=== PATIENT | male | born 1945 | race Caucasian/White ===

== ENCOUNTER 2018-02-21 13:12 | Outpatient (CLI) | payer MEDICARE, BC, SELFPAY ==
[2018-02-21 14:13] LABS: Bilirubin Negative (Negative); Blood Negative (Negative); Clarity Clear; Glucose Negative (Negative); Ketones Negative (Negative); Leukocyte Esterase Negative (Negative); Nitrite Negative (Negative); Specific Gravity 1.015 (1.005-1.025)
== END 2018-02-21 13:32 ==
PROVIDERS: Visit Provider Internal Medicine Hematology & Oncology
DX: N39.0 Urinary tract infection, site not specified (principal)
CPT/HCPCS: 81003

== ENCOUNTER 2018-02-26 08:57 | Outpatient (CLI) | payer MEDICARE, BC, SELFPAY ==
[2018-02-26 09:17] LABS: Abs Immature Grans 0.03 k/cumm (0.0-0.09); Absolute Basophil Count 0.01 k/cumm (0.0-0.2); Absolute Eosinophil Count 0.13 k/cumm (0.0-0.7); Absolute Lymphocyte Count 0.83 k/cumm (1.2-3.4); Absolute Monocyte Count 0.62 k/cumm (0.11-0.7); Absolute Neutrophil Count 2.61 k/cumm (1.2-6.7); Basophils % 0.2; Eosinophils % 3.1; HCT 35.6 % (40.0-50.0); HGB 12.1 g/dL (13.5-17.5); Immature Grans % 0.7; Lymphocytes % 19.6; Mean Corpuscular Hemoglobin 34.4 pg (27.0-33.0); Mean Corpuscular Volume 101.1 fL (80-95); Mean Platelet Volume 10.3 fL (8.0-11.0); Monocytes % 14.7; Neutrophils % 61.7; Platelet Count 134 x1000/uL (130-400); RBC 3.52 m/cumm (4.50-6.00); RBC Distribution Width 13.7 % (11.8-14.1); White Blood Cell Count 4.23 k/cumm (4.4-10.8)
[2018-02-26 09:28] LABS: ALT 43 U/L (12-78); AST 24 U/L (15-37); Albumin 3.2 g/dL (3.4-5.0); Alkaline Phosphatase 40 U/L (46-116); Anion Gap 7.8 mmol/L (3-11); BUN 12 mg/dL (7-18); Bilirubin, Total 0.7 mg/dL (0.2-1.0); CO2 26.2 mmol/L (21.0-32.0); CREATININE 1.03 mg/dL (0.70-1.30); Calcium 8.8 mg/dL (8.5-10.1); Chloride 103 mmol/L (98-107); Glucose 101 mg/dL (70-100); Potassium 3.9 mmol/L (3.5-5.1); Sodium 137 mmol/L (136-145); Total Protein 7.4 g/dL (6.4-8.2)
[2018-02-27 09:58] LABS: IgA 1060 mg/dL (85-499); IgG 450 mg/dL (610-1616); IgM 27 mg/dL (35-242); Kappa Free Light Chain 1.02 mg/dl (0.33-1.94)
[2018-02-27 12:56] LABS: Albumin 49.4 % (55.8-66.1); Monoclonal Spike 12.1 %; Total Protein 6.8 g/dl (6.3-8.2)
== END 2018-02-26 09:17 ==
PROVIDERS: Visit Provider Internal Medicine Hematology & Oncology
DX: D47.2 Monoclonal gammopathy (principal)
CPT/HCPCS: 36415; 80053; 82784; 83883; 84165; 85025

== ENCOUNTER 2018-03-07 10:04 | Outpatient (CLI) | payer MEDICARE, BC, SELFPAY ==
[2018-03-07 10:22] LABS: Abs Immature Grans 0.02 k/cumm (0.0-0.09); Absolute Eosinophil Count 0.03 k/cumm (0.0-0.7); Absolute Lymphocyte Count 0.91 k/cumm (1.2-3.4); Absolute Monocyte Count 1.13 k/cumm (0.11-0.7); Absolute Neutrophil Count 5.14 k/cumm (1.2-6.7); Eosinophils % 0.4; HCT 34.4 % (40.0-50.0); HGB 11.6 g/dL (13.5-17.5); Immature Grans % 0.3; Lymphocytes % 12.6; Mean Corp. HGB Concentration 33.7 g/dL (32.0-36.0); Mean Corpuscular Hemoglobin 34.4 pg (27.0-33.0); Mean Corpuscular Volume 102.1 fL (80-95); Monocytes % 15.6; Neutrophils % 71.1; Platelet Count 227 x1000/uL (130-400); RBC 3.37 m/cumm (4.50-6.00); RBC Distribution Width 13.9 % (11.8-14.1); White Blood Cell Count 7.23 k/cumm (4.4-10.8)
[2018-03-07 10:33] LABS: ALT 37 U/L (12-78); AST 16 U/L (15-37); Albumin 3.3 g/dL (3.4-5.0); Alkaline Phosphatase 38 U/L (46-116); Anion Gap 12.2 mmol/L (3-11); BUN 12 mg/dL (7-18); Bilirubin, Total 0.3 mg/dL (0.2-1.0); CO2 23.8 mmol/L (21.0-32.0); CREATININE 1.04 mg/dL (0.70-1.30); Calcium 8.4 mg/dL (8.5-10.1); Chloride 107 mmol/L (98-107); Glucose 101 mg/dL (70-100); Potassium 4.3 mmol/L (3.5-5.1); Sodium 143 mmol/L (136-145); Total Protein 6.8 g/dL (6.4-8.2)
== END 2018-03-07 10:24 ==
PROVIDERS: PCP Registered Nurse; Visit Provider Internal Medicine Hematology & Oncology
DX: C90.00 Multiple myeloma not having achieved remission (principal)
CPT/HCPCS: 36415; 80053; 85025

== ENCOUNTER 2018-03-19 08:05 | Outpatient (CLI) | payer MEDICARE, BC, SELFPAY ==
[2018-03-19 08:53] LABS: Abs Immature Grans 0.04 k/cumm (0.0-0.09); Absolute Basophil Count 0.02 k/cumm (0.0-0.2); Absolute Eosinophil Count 0.16 k/cumm (0.0-0.7); Absolute Lymphocyte Count 0.76 k/cumm (1.2-3.4); Absolute Monocyte Count 0.46 k/cumm (0.11-0.7); Absolute Neutrophil Count 4.14 k/cumm (1.2-6.7); Basophils % 0.4; Eosinophils % 2.9; HGB 11.6 g/dL (13.5-17.5); Immature Grans % 0.7; Lymphocytes % 13.6; Mean Corp. HGB Concentration 34.1 g/dL (32.0-36.0); Mean Corpuscular Hemoglobin 34.3 pg (27.0-33.0); Mean Corpuscular Volume 100.6 fL (80-95); Mean Platelet Volume 10.1 fL (8.0-11.0); Monocytes % 8.2; Neutrophils % 74.2; Platelet Count 203 x1000/uL (130-400); RBC 3.38 m/cumm (4.50-6.00); RBC Distribution Width 13.5 % (11.8-14.1); White Blood Cell Count 5.58 k/cumm (4.4-10.8)
[2018-03-19 09:28] LABS: ALT 23 U/L (12-78); AST 12 U/L (15-37); Albumin 3.2 g/dL (3.4-5.0); Alkaline Phosphatase 52 U/L (46-116); Anion Gap 11.4 mmol/L (3-11); BUN 10 mg/dL (7-18); Bilirubin, Total 0.5 mg/dL (0.2-1.0); CO2 25.6 mmol/L (21.0-32.0); CREATININE 1.02 mg/dL (0.70-1.30); Calcium 8.6 mg/dL (8.5-10.1); Chloride 102 mmol/L (98-107); Glucose 99 mg/dL (70-100); Potassium 4.1 mmol/L (3.5-5.1); Sodium 139 mmol/L (136-145)
[2018-03-20 11:45] LABS: Kappa Free Light Chain 0.89 mg/dl (0.33-1.94); Lambda Free Light Chain 14.64 mg/dl (0.57-2.63)
[2018-03-20 13:24] LABS: Albumin 53.6 % (55.8-66.1); Monoclonal Spike 4.7 %; Total Protein 6.2 g/dl (6.3-8.2)
[2018-03-21 03:21] LABS: Beta-2-Microglobulin 2.56 mcg/mL
== END 2018-03-19 08:25 ==
PROVIDERS: Student in an Organized Health Care Education/Training Program; PCP Registered Nurse; Visit Provider Internal Medicine Hematology & Oncology
DX: C90.00 Multiple myeloma not having achieved remission (principal)
CPT/HCPCS: 36415; 80053; 82232; 83883; 84165; 85025

== ENCOUNTER 2018-04-12 11:46 | Outpatient (CLI) | payer MEDICARE, BC, SELFPAY ==
[2018-04-12 12:44] LABS: Abs Immature Grans 0.29 k/cumm (0.0-0.09); HCT 35.5 % (40.0-50.0); HGB 11.9 g/dL (13.5-17.5); Mean Corp. HGB Concentration 33.5 g/dL (32.0-36.0); Mean Corpuscular Hemoglobin 33.1 pg (27.0-33.0); Mean Corpuscular Volume 98.6 fL (80-95); Mean Platelet Volume 10.6 fL (8.0-11.0); Platelet Count 159 x1000/uL (130-400); White Blood Cell Count 6.32 k/cumm (4.4-10.8)
[2018-04-12 12:57] LABS: ALT 32 U/L (12-78); AST 23 U/L (15-37); Albumin 3.5 g/dL (3.4-5.0); Alkaline Phosphatase 54 U/L (46-116); Anion Gap 11.5 mmol/L (3-11); BUN 15 mg/dL (7-18); Bilirubin, Total 0.4 mg/dL (0.2-1.0); CO2 25.5 mmol/L (21.0-32.0); CREATININE 0.86 mg/dL (0.70-1.30); Chloride 103 mmol/L (98-107); Glucose 98 mg/dL (70-100); Potassium 4.4 mmol/L (3.5-5.1); Sodium 140 mmol/L (136-145)
[2018-04-12 13:16] LABS: Absolute Basophil Count 0.06 k/cumm (0.0-0.2); Absolute Lymphocyte Count 1.26 k/cumm (1.2-3.4); Absolute Neutrophil Count 3.98 k/cumm (1.2-6.7)
[2018-04-12 13:17] LABS: Diff Comment Manual Differential; Polychromasia Present
[2018-04-13 10:17] LABS: Kappa Free Light Chain 0.88 mg/dl (0.33-1.94); Lambda Free Light Chain 12.93 mg/dl (0.57-2.63)
[2018-04-13 13:53] LABS: Albumin 56.9 % (55.8-66.1); Monoclonal Spike 3.2 %; Total Protein 6.3 g/dl (6.3-8.2)
[2018-04-13 19:39] LABS: Beta-2-Microglobulin 4.25 mcg/mL
== END 2018-04-12 12:06 ==
PROVIDERS: PCP Registered Nurse; Visit Provider Student in an Organized Health Care Education/Training Program
DX: C90.00 Multiple myeloma not having achieved remission (principal)
CPT/HCPCS: 36415; 80053; 82232; 83883; 84165; 85025

== ENCOUNTER 2018-05-16 11:23 | Outpatient (CLI) | payer MEDICARE, SELFPAY ==
[2018-05-16 12:14] LABS: Abs Immature Grans 0.02 k/cumm (0.0-0.09); Absolute Basophil Count 0.01 k/cumm (0.0-0.2); Absolute Eosinophil Count 0.08 k/cumm (0.0-0.7); Absolute Lymphocyte Count 1.08 k/cumm (1.2-3.4); Absolute Monocyte Count 0.17 k/cumm (0.11-0.7); Absolute Neutrophil Count 4.58 k/cumm (1.2-6.7); Basophils % 0.2; Eosinophils % 1.3; HCT 36.6 % (40.0-50.0); HGB 12.3 g/dL (13.5-17.5); Immature Grans % 0.3; Lymphocytes % 18.2; Mean Corp. HGB Concentration 33.6 g/dL (32.0-36.0); Mean Corpuscular Hemoglobin 32.5 pg (27.0-33.0); Mean Corpuscular Volume 96.8 fL (80-95); Mean Platelet Volume 9.4 fL (8.0-11.0); Monocytes % 2.9; Neutrophils % 77.1; Platelet Count 250 x1000/uL (130-400); RBC 3.78 m/cumm (4.50-6.00); RBC Distribution Width 14.7 % (11.8-14.1); White Blood Cell Count 5.94 k/cumm (4.4-10.8)
[2018-05-16 12:23] LABS: ALT 55 U/L (12-78); AST 21 U/L (15-37); Albumin 3.9 g/dL (3.4-5.0); Alkaline Phosphatase 55 U/L (46-116); Anion Gap 11.2 mmol/L (3-11); BUN 16 mg/dL (7-18); Bilirubin, Total 0.5 mg/dL (0.2-1.0); CO2 22.8 mmol/L (21.0-32.0); Calcium 9.3 mg/dL (8.5-10.1); Chloride 103 mmol/L (98-107); Glucose 131 mg/dL (70-100); Potassium 4.5 mmol/L (3.5-5.1); Sodium 137 mmol/L (136-145); Total Protein 7.2 g/dL (6.4-8.2)
[2018-05-17 11:54] LABS: Albumin 58.1 % (55.8-66.1); Monoclonal Spike 3.2 %; Total Protein 6.7 g/dl (6.3-8.2)
[2018-05-17 13:30] LABS: IgA 168 mg/dL (85-499); IgG 554 mg/dL (610-1616); IgM 26 mg/dL (35-242); Kappa Free Light Chain 0.84 mg/dl (0.33-1.94); Lambda Free Light Chain 8.05 mg/dl (0.57-2.63)
== END 2018-05-16 11:43 ==
PROVIDERS: PCP Registered Nurse; Visit Provider Internal Medicine Hematology & Oncology
DX: C90.00 Multiple myeloma not having achieved remission (principal); D47.2 Monoclonal gammopathy
CPT/HCPCS: 36415; 80053; 82784; 83883; 84165; 85025

== ENCOUNTER 2018-05-23 12:41 | Outpatient (CLI) | payer MEDICARE, SELFPAY ==
[2018-05-23 13:13] LABS: Abs Immature Grans 0.03 k/cumm (0.0-0.09); Absolute Basophil Count 0.03 k/cumm (0.0-0.2); Absolute Eosinophil Count 0.28 k/cumm (0.0-0.7); Absolute Lymphocyte Count 2.38 k/cumm (1.2-3.4); Absolute Monocyte Count 0.72 k/cumm (0.11-0.7); Absolute Neutrophil Count 3.89 k/cumm (1.2-6.7); Basophils % 0.4; Eosinophils % 3.8; HGB 12.5 g/dL (13.5-17.5); Immature Grans % 0.4; Lymphocytes % 32.5; Mean Corp. HGB Concentration 33.8 g/dL (32.0-36.0); Mean Corpuscular Hemoglobin 32.9 pg (27.0-33.0); Mean Corpuscular Volume 97.4 fL (80-95); Mean Platelet Volume 9.1 fL (8.0-11.0); Monocytes % 9.8; Neutrophils % 53.1; Platelet Count 278 x1000/uL (130-400); RBC Distribution Width 15.2 % (11.8-14.1); White Blood Cell Count 7.33 k/cumm (4.4-10.8)
== END 2018-05-23 13:01 ==
PROVIDERS: PCP Registered Nurse; Visit Provider Internal Medicine Hematology & Oncology
DX: D47.2 Monoclonal gammopathy (principal)
CPT/HCPCS: 36415; 85025

== ENCOUNTER 2018-06-08 11:11 | Outpatient (CLI) | payer MEDICARE, SELFPAY ==
[2018-06-08 11:30] LABS: Abs Immature Grans 0.03 k/cumm (0.0-0.09); Absolute Basophil Count 0.01 k/cumm (0.0-0.2); Absolute Eosinophil Count 0.17 k/cumm (0.0-0.7); Absolute Lymphocyte Count 1.67 k/cumm (1.2-3.4); Absolute Monocyte Count 1.59 k/cumm (0.11-0.7); Absolute Neutrophil Count 5.68 k/cumm (1.2-6.7); Basophils % 0.1; Eosinophils % 1.9; HCT 36.3 % (40.0-50.0); HGB 12.3 g/dL (13.5-17.5); Immature Grans % 0.3; Lymphocytes % 18.3; Mean Corp. HGB Concentration 33.9 g/dL (32.0-36.0); Mean Corpuscular Hemoglobin 32.8 pg (27.0-33.0); Mean Corpuscular Volume 96.8 fL (80-95); Mean Platelet Volume 9.4 fL (8.0-11.0); Monocytes % 17.4; Platelet Count 182 x1000/uL (130-400); RBC 3.75 m/cumm (4.50-6.00); White Blood Cell Count 9.15 k/cumm (4.4-10.8)
[2018-06-08 11:42] LABS: ALT 26 U/L (12-78); AST 10 U/L (15-37); Albumin 3.6 g/dL (3.4-5.0); Alkaline Phosphatase 46 U/L (46-116); Anion Gap 8.9 mmol/L (3-11); BUN 17 mg/dL (7-18); Bilirubin, Total 0.4 mg/dL (0.2-1.0); CO2 27.1 mmol/L (21.0-32.0); CREATININE 0.89 mg/dL (0.70-1.30); Calcium 8.4 mg/dL (8.5-10.1); Chloride 104 mmol/L (98-107); Glucose 116 mg/dL (70-100); LDH 111 U/L (85-227); Potassium 3.6 mmol/L (3.5-5.1); Sodium 140 mmol/L (136-145); Total Protein 6.7 g/dL (6.4-8.2)
[2018-06-08 11:51] LABS: Diff Comment Manual Differential; Polychromasia Present
[2018-06-11 10:49] LABS: IgA 139 mg/dL (85-499); IgG 490 mg/dL (610-1616); IgM 20 mg/dL (35-242); Kappa Free Light Chain 0.87 mg/dl (0.33-1.94); Lambda Free Light Chain 10.59 mg/dl (0.57-2.63)
[2018-06-11 14:32] LABS: Albumin 60.8 % (55.8-66.1); Monoclonal Spike 2.3 %; Total Protein 6.1 g/dl (6.3-8.2)
== END 2018-06-08 11:31 ==
PROVIDERS: PCP Registered Nurse; Visit Provider Internal Medicine Hematology & Oncology
DX: D47.2 Monoclonal gammopathy (principal)
CPT/HCPCS: 36415; 80053; 82784; 83615; 83883; 84165; 85025

== ENCOUNTER 2018-06-29 12:07 | Outpatient (CLI) | payer MEDICARE, BC, SELFPAY ==
[2018-06-29 12:56] LABS: Abs Immature Grans 0.05 k/cumm (0.0-0.09); Absolute Basophil Count 0.01 k/cumm (0.0-0.2); Absolute Eosinophil Count 0.08 k/cumm (0.0-0.7); Absolute Lymphocyte Count 1.63 k/cumm (1.2-3.4); Absolute Neutrophil Count 4.43 k/cumm (1.2-6.7); Basophils % 0.1; Eosinophils % 1.1; HCT 36.4 % (40.0-50.0); HGB 12.2 g/dL (13.5-17.5); Immature Grans % 0.7; Lymphocytes % 21.4; Mean Corp. HGB Concentration 33.5 g/dL (32.0-36.0); Mean Corpuscular Hemoglobin 32.2 pg (27.0-33.0); Mean Platelet Volume 9.9 fL (8.0-11.0); Monocytes % 18.4; Neutrophils % 58.3; Platelet Count 258 x1000/uL (130-400); RBC 3.79 m/cumm (4.50-6.00); RBC Distribution Width 15.6 % (11.8-14.1)
[2018-06-29 13:25] LABS: ALT 29 U/L (12-78); AST 11 U/L (15-37); Albumin 3.6 g/dL (3.4-5.0); Alkaline Phosphatase 34 U/L (46-116); Anion Gap 10.5 mmol/L (3-11); BUN 14 mg/dL (7-18); Bilirubin, Total 0.3 mg/dL (0.2-1.0); CO2 25.5 mmol/L (21.0-32.0); Calcium 8.6 mg/dL (8.5-10.1); Chloride 104 mmol/L (98-107); Glucose 103 mg/dL (70-100); Potassium 3.9 mmol/L (3.5-5.1); Sodium 140 mmol/L (136-145); Total Protein 6.3 g/dL (6.4-8.2)
[2018-07-02 10:31] LABS: IgA 136 mg/dL (85-499); IgG 482 mg/dL (610-1616); IgM 17 mg/dL (35-242); Kappa Free Light Chain 0.78 mg/dl (0.33-1.94); Lambda Free Light Chain 8.45 mg/dl (0.57-2.63)
[2018-07-02 11:50] LABS: Albumin 61.8 % (55.8-66.1); Monoclonal Spike 2.9 %
== END 2018-06-29 12:27 ==
PROVIDERS: PCP Registered Nurse; Visit Provider Student in an Organized Health Care Education/Training Program
DX: C90.00 Multiple myeloma not having achieved remission (principal); D47.2 Monoclonal gammopathy
CPT/HCPCS: 36415; 80053; 82784; 83883; 84165; 85025

== ENCOUNTER 2018-07-20 11:11 | Outpatient (CLI) | payer MEDICARE, BC, SELFPAY ==
[2018-07-20 11:37] LABS: Abs Immature Grans 0.03 k/cumm (0.0-0.09); Absolute Basophil Count 0.01 k/cumm (0.0-0.2); Absolute Eosinophil Count 0.11 k/cumm (0.0-0.7); Absolute Lymphocyte Count 1.78 k/cumm (1.2-3.4); Absolute Monocyte Count 1.64 k/cumm (0.11-0.7); Absolute Neutrophil Count 5.92 k/cumm (1.2-6.7); Basophils % 0.1; Eosinophils % 1.2; HCT 36.8 % (40.0-50.0); HGB 12.5 g/dL (13.5-17.5); Immature Grans % 0.3; Lymphocytes % 18.8; Mean Corpuscular Hemoglobin 32.5 pg (27.0-33.0); Mean Corpuscular Volume 95.6 fL (80-95); Mean Platelet Volume 9.2 fL (8.0-11.0); Monocytes % 17.3; Neutrophils % 62.3; Platelet Count 278 x1000/uL (130-400); RBC 3.85 m/cumm (4.50-6.00); RBC Distribution Width 15.1 % (11.8-14.1); White Blood Cell Count 9.49 k/cumm (4.4-10.8)
[2018-07-20 11:50] LABS: ALT 23 U/L (12-78); AST 10 U/L (15-37); Albumin 3.6 g/dL (3.4-5.0); Alkaline Phosphatase 37 U/L (46-116); Anion Gap 9.1 mmol/L (3-11); BUN 19 mg/dL (7-18); Bilirubin, Total 0.3 mg/dL (0.2-1.0); CO2 24.9 mmol/L (21.0-32.0); CREATININE 0.94 mg/dL (0.70-1.30); Calcium 8.9 mg/dL (8.5-10.1); Chloride 103 mmol/L (98-107); Glucose 97 mg/dL (70-100); Potassium 4.1 mmol/L (3.5-5.1); Sodium 137 mmol/L (136-145); Total Protein 6.6 g/dL (6.4-8.2)
[2018-07-20 11:52] LABS: Anisocytosis 1+; Diff Comment Manual Differential
[2018-07-23 11:36] LABS: IgA 125 mg/dL (85-499); IgG 452 mg/dL (610-1616); IgM 18 mg/dL (35-242); Kappa Free Light Chain 0.84 mg/dl (0.33-1.94); Lambda Free Light Chain 8.08 mg/dl (0.57-2.63)
[2018-07-23 12:33] LABS: Albumin 60.8 % (55.8-66.1); Monoclonal Spike 2.5 %; Total Protein 6.1 g/dl (6.3-8.2)
== END 2018-07-20 11:31 ==
PROVIDERS: PCP Registered Nurse; Visit Provider Internal Medicine Hematology & Oncology
DX: D47.2 Monoclonal gammopathy (principal)
CPT/HCPCS: 36415; 80053; 82784; 83883; 84165; 85025

== ENCOUNTER 2018-08-17 11:16 | Outpatient (CLI) | payer MEDICARE, BC, SELFPAY ==
[2018-08-17 11:36] LABS: Abs Immature Grans 0.01 k/cumm (0.0-0.09); Absolute Basophil Count 0.03 k/cumm (0.0-0.2); Absolute Eosinophil Count 0.45 k/cumm (0.0-0.7); Absolute Lymphocyte Count 1.48 k/cumm (1.2-3.4); Absolute Monocyte Count 0.92 k/cumm (0.11-0.7); Absolute Neutrophil Count 1.73 k/cumm (1.2-6.7); Basophils % 0.6; Eosinophils % 9.7; HCT 38.6 % (40.0-50.0); HGB 13.3 g/dL (13.5-17.5); Immature Grans % 0.2; Mean Corp. HGB Concentration 34.5 g/dL (32.0-36.0); Mean Corpuscular Hemoglobin 32.8 pg (27.0-33.0); Mean Corpuscular Volume 95.1 fL (80-95); Mean Platelet Volume 9.4 fL (8.0-11.0); Monocytes % 19.9; Neutrophils % 37.6; Platelet Count 251 x1000/uL (130-400); RBC 4.06 m/cumm (4.50-6.00); RBC Distribution Width 14.9 % (11.8-14.1); White Blood Cell Count 4.62 k/cumm (4.4-10.8)
[2018-08-17 12:25] LABS: ALT 23 U/L (12-78); AST 10 U/L (15-37); Albumin 3.9 g/dL (3.4-5.0); Alkaline Phosphatase 47 U/L (46-116); Anion Gap 8.9 mmol/L (3-11); BUN 11 mg/dL (7-18); Bilirubin, Total 0.5 mg/dL (0.2-1.0); CO2 26.1 mmol/L (21.0-32.0); CREATININE 0.99 mg/dL (0.70-1.30); Calcium 9.1 mg/dL (8.5-10.1); Chloride 106 mmol/L (98-107); Glucose 96 mg/dL (70-100); Potassium 4.4 mmol/L (3.5-5.1); Sodium 141 mmol/L (136-145); Total Protein 6.7 g/dL (6.4-8.2)
[2018-08-20 11:03] LABS: Kappa Free Light Chain 1.28 mg/dl (0.33-1.94); Lambda Free Light Chain 10.81 mg/dl (0.57-2.63)
[2018-08-20 12:22] LABS: Albumin 61.2 % (55.8-66.1); Monoclonal Spike 3.4 %; Total Protein 6.5 g/dl (6.3-8.2)
== END 2018-08-17 11:36 ==
PROVIDERS: PCP Registered Nurse; Visit Provider Internal Medicine Hematology & Oncology
DX: D47.2 Monoclonal gammopathy (principal)
CPT/HCPCS: 36415; 80053; 83883; 84165; 85025

== ENCOUNTER 2018-09-28 10:32 | Outpatient (CLI) | payer MEDICARE, BC, SELFPAY ==
[2018-09-28 10:55] LABS: Abs Immature Grans 0.01 k/cumm (0.0-0.09); Absolute Basophil Count 0.02 k/cumm (0.0-0.2); Absolute Eosinophil Count 0.44 k/cumm (0.0-0.7); Absolute Lymphocyte Count 1.76 k/cumm (1.2-3.4); Absolute Monocyte Count 0.55 k/cumm (0.11-0.7); Absolute Neutrophil Count 1.87 k/cumm (1.2-6.7); Basophils % 0.4; Eosinophils % 9.5; HCT 37.9 % (40.0-50.0); HGB 12.9 g/dL (13.5-17.5); Immature Grans % 0.2; Lymphocytes % 37.8; Mean Corpuscular Hemoglobin 32.9 pg (27.0-33.0); Mean Corpuscular Volume 96.7 fL (80-95); Monocytes % 11.8; Neutrophils % 40.3; Platelet Count 226 x1000/uL (130-400); RBC 3.92 m/cumm (4.50-6.00); RBC Distribution Width 15.5 % (11.8-14.1); White Blood Cell Count 4.65 k/cumm (4.4-10.8)
[2018-09-28 11:14] LABS: ALT 34 U/L (12-78); AST 22 U/L (15-37); Albumin 3.8 g/dL (3.4-5.0); Alkaline Phosphatase 35 U/L (46-116); Anion Gap 10.6 mmol/L (3-11); BUN 14 mg/dL (7-18); Bilirubin, Total 0.7 mg/dL (0.2-1.0); CO2 26.4 mmol/L (21.0-32.0); CREATININE 0.73 mg/dL (0.70-1.30); Calcium 8.9 mg/dL (8.5-10.1); Chloride 106 mmol/L (98-107); Glucose 108 mg/dL (70-100); Sodium 143 mmol/L (136-145); Total Protein 6.9 g/dL (6.4-8.2)
[2018-10-01 09:15] LABS: Kappa Free Light Chain 0.92 mg/dl (0.33-1.94)
[2018-10-01 10:11] LABS: IgA 248 mg/dL (85-499); IgG 567 mg/dL (610-1616); IgM 22 mg/dL (35-242)
[2018-10-01 12:17] LABS: Albumin 60.5 % (55.8-66.1); Monoclonal Spike 4.1 %; Total Protein 6.6 g/dl (6.3-8.2)
== END 2018-09-28 10:52 ==
PROVIDERS: PCP Registered Nurse; Visit Provider Internal Medicine Hematology & Oncology
DX: C90.00 Multiple myeloma not having achieved remission (principal)
CPT/HCPCS: 36415; 80053; 82784; 83883; 84165; 85025

== ENCOUNTER 2018-11-02 11:42 | Outpatient (CLI) | payer MEDICARE, BC, SELFPAY ==
[2018-11-02 13:07] LABS: Abs Immature Grans 0.03 k/cumm (0.0-0.09); Absolute Basophil Count 0.02 k/cumm (0.0-0.2); Absolute Eosinophil Count 0.35 k/cumm (0.0-0.7); Absolute Lymphocyte Count 1.59 k/cumm (1.2-3.4); Absolute Monocyte Count 0.71 k/cumm (0.11-0.7); Absolute Neutrophil Count 2.32 k/cumm (1.2-6.7); Basophils % 0.4; HCT 42.3 % (40.0-50.0); HGB 14.4 g/dL (13.5-17.5); Immature Grans % 0.6; Lymphocytes % 31.7; Mean Corpuscular Hemoglobin 33.4 pg (27.0-33.0); Mean Corpuscular Volume 98.1 fL (80-95); Mean Platelet Volume 9.7 fL (8.0-11.0); Monocytes % 14.1; Neutrophils % 46.2; Platelet Count 240 x1000/uL (130-400); RBC 4.31 m/cumm (4.50-6.00); RBC Distribution Width 14.9 % (11.8-14.1); White Blood Cell Count 5.02 k/cumm (4.4-10.8)
[2018-11-02 13:24] LABS: ALT 53 U/L (16-63); AST 30 U/L (15-37); Albumin 4.2 g/dL (3.4-5.0); Alkaline Phosphatase 39 U/L (46-116); Anion Gap 10.5 mmol/L (3-11); BUN 13 mg/dL (7-18); Bilirubin, Total 0.4 mg/dL (0.2-1.0); CO2 25.5 mmol/L (21.0-32.0); CREATININE 0.91 mg/dL (0.70-1.30); Calcium 8.9 mg/dL (8.5-10.1); Chloride 104 mmol/L (98-107); Glucose 97 mg/dL (70-100); Potassium 4.5 mmol/L (3.5-5.1); Sodium 140 mmol/L (136-145); Total Protein 7.2 g/dL (6.4-8.2)
[2018-11-05 11:43] LABS: IgA 323 mg/dL (85-499); IgG 601 mg/dL (610-1616); IgM 28 mg/dL (35-242); Kappa Free Light Chain 1.08 mg/dl (0.33-1.94); Lambda Free Light Chain 15.17 mg/dl (0.57-2.63)
[2018-11-05 13:54] LABS: Albumin 61.6 % (55.8-66.1); Monoclonal Spike 5.2 %; Total Protein 7.1 g/dl (6.3-8.2)
== END 2018-11-02 12:02 ==
PROVIDERS: PCP Registered Nurse; Visit Provider Internal Medicine Hematology & Oncology
DX: D47.2 Monoclonal gammopathy (principal)
CPT/HCPCS: 36415; 80053; 82784; 83883; 84165; 85025

== ENCOUNTER 2018-11-30 11:25 | Outpatient (CLI) | payer MEDICARE, BC, SELFPAY ==
[2018-11-30 12:06] LABS: Abs Immature Grans 0.02 k/cumm (0.0-0.09); Absolute Basophil Count 0.01 k/cumm (0.0-0.2); Absolute Lymphocyte Count 1.57 k/cumm (1.2-3.4); Absolute Neutrophil Count 1.64 k/cumm (1.2-6.7); Basophils % 0.2; HCT 40.8 % (40.0-50.0); HGB 14.2 g/dL (13.5-17.5); Immature Grans % 0.5; Lymphocytes % 38.9; Mean Corp. HGB Concentration 34.8 g/dL (32.0-36.0); Mean Corpuscular Volume 97.6 fL (80-95); Monocytes % 14.9; Neutrophils % 40.5; Platelet Count 239 x1000/uL (130-400); RBC 4.18 m/cumm (4.50-6.00); RBC Distribution Width 14.3 % (11.8-14.1); White Blood Cell Count 4.04 k/cumm (4.4-10.8)
[2018-11-30 12:39] LABS: ALT 40 U/L (16-63); AST 28 U/L (15-37); Albumin 3.9 g/dL (3.4-5.0); Alkaline Phosphatase 38 U/L (46-116); Anion Gap 10.2 mmol/L (3-11); BUN 11 mg/dL (7-18); Bilirubin, Total 0.4 mg/dL (0.2-1.0); CO2 25.8 mmol/L (21.0-32.0); CREATININE 0.93 mg/dL (0.70-1.30); Calcium 8.8 mg/dL (8.5-10.1); Chloride 104 mmol/L (98-107); Glucose 102 mg/dL (70-100); Potassium 4.2 mmol/L (3.5-5.1); Sodium 140 mmol/L (136-145); Total Protein 7.2 g/dL (6.4-8.2)
[2018-12-03 11:38] LABS: Kappa Free Light Chain 1.48 mg/dl (0.33-1.94); Lambda Free Light Chain 20.19 mg/dl (0.57-2.63)
[2018-12-03 11:59] LABS: IgA 348 mg/dL (85-499); IgG 623 mg/dL (610-1616); IgM 30 mg/dL (35-242)
[2018-12-03 13:19] LABS: Albumin 60.3 % (55.8-66.1); Monoclonal Spike 5.4 %; Total Protein 6.8 g/dl (6.3-8.2)
== END 2018-11-30 11:45 ==
PROVIDERS: PCP Registered Nurse; Visit Provider Internal Medicine Hematology & Oncology
DX: D47.2 Monoclonal gammopathy (principal)
CPT/HCPCS: 36415; 80053; 82784; 83883; 84165; 85025

== ENCOUNTER 2018-12-28 12:14 | Outpatient (CLI) | payer MEDICARE, BC, SELFPAY ==
[2018-12-28 12:56] LABS: Abs Immature Grans 0.01 k/cumm (0.0-0.09); Absolute Basophil Count 0.03 k/cumm (0.0-0.2); Absolute Lymphocyte Count 1.72 k/cumm (1.2-3.4); Absolute Monocyte Count 0.76 k/cumm (0.11-0.7); Absolute Neutrophil Count 1.19 k/cumm (1.2-6.7); Basophils % 0.8; Eosinophils % 5.1; HCT 40.1 % (40.0-50.0); Immature Grans % 0.3; Mean Corp. HGB Concentration 34.9 g/dL (32.0-36.0); Mean Corpuscular Hemoglobin 34.2 pg (27.0-33.0); Mean Platelet Volume 8.7 fL (8.0-11.0); Monocytes % 19.4; Neutrophils % 30.4; Platelet Count 212 x1000/uL (130-400); RBC 4.09 m/cumm (4.50-6.00); RBC Distribution Width 13.8 % (11.8-14.1); White Blood Cell Count 3.91 k/cumm (4.4-10.8)
[2018-12-28 13:08] LABS: ALT 51 U/L (16-63); AST 24 U/L (15-37); Albumin 3.9 g/dL (3.4-5.0); Alkaline Phosphatase 38 U/L (46-116); BUN 10 mg/dL (7-18); Bilirubin, Total 0.4 mg/dL (0.2-1.0); CREATININE 0.99 mg/dL (0.70-1.30); Calcium 8.9 mg/dL (8.5-10.1); Chloride 105 mmol/L (98-107); Glucose 101 mg/dL (70-100); Potassium 4.1 mmol/L (3.5-5.1); Sodium 141 mmol/L (136-145); Total Protein 7.2 g/dL (6.4-8.2)
[2019-01-01 11:42] LABS: IgA 390 mg/dL (85-499); IgG 678 mg/dL (610-1,616); IgM 29 mg/dL (35-242); Kappa Free Light Chain 1.52 mg/dL (0.33-1.94); Lambda Free Light Chain 23.96 mg/dL (0.57-2.63)
[2019-01-07 17:40] LABS: Albumin 61.7 % (55.8-66.1); Monoclonal Spike 5.3 % (<=0.0)
== END 2018-12-28 12:34 ==
PROVIDERS: PCP Registered Nurse; Visit Provider Internal Medicine Hematology & Oncology
DX: C90.00 Multiple myeloma not having achieved remission (principal)
CPT/HCPCS: 36415; 80053; 82784; 83883; 84165; 85025

== ENCOUNTER 2019-01-25 11:39 | Outpatient (CLI) | payer MEDICARE, BC, SELFPAY ==
[2019-01-25 12:36] LABS: Abs Immature Grans 0.01 k/cumm (0.0-0.09); Absolute Basophil Count 0.01 k/cumm (0.0-0.2); Absolute Eosinophil Count 0.19 k/cumm (0.0-0.7); Absolute Lymphocyte Count 1.23 k/cumm (1.2-3.4); Absolute Neutrophil Count 2.18 k/cumm (1.2-6.7); Basophils % 0.2; Eosinophils % 4.6; HCT 40.4 % (40.0-50.0); HGB 13.9 g/dL (13.5-17.5); Immature Grans % 0.2; Lymphocytes % 29.9; Mean Corp. HGB Concentration 34.4 g/dL (32.0-36.0); Mean Corpuscular Hemoglobin 34.3 pg (27.0-33.0); Mean Corpuscular Volume 99.8 fL (80-95); Monocytes % 12.1; Platelet Count 204 x1000/uL (130-400); RBC 4.05 m/cumm (4.50-6.00); RBC Distribution Width 13.5 % (11.8-14.1); White Blood Cell Count 4.12 k/cumm (4.4-10.8)
[2019-01-25 13:55] LABS: ALT 54 U/L (16-63); AST 33 U/L (15-37); Albumin 4.2 g/dL (3.4-5.0); Alkaline Phosphatase 40 U/L (46-116); Anion Gap 10.5 mmol/L (3-11); BUN 16 mg/dL (7-18); Bilirubin, Total 0.6 mg/dL (0.2-1.0); CO2 24.5 mmol/L (21.0-32.0); CREATININE 1.02 mg/dL (0.70-1.30); Calcium 9.3 mg/dL (8.5-10.1); Chloride 104 mmol/L (98-107); Glucose 98 mg/dL (74-106); Potassium 4.2 mmol/L (3.5-5.1); Sodium 139 mmol/L (136-145); Total Protein 7.5 g/dL (6.4-8.2)
[2019-01-28 11:32] LABS: IgA 434 mg/dL (85-499); IgG 680 mg/dL (610-1,616); IgM 25 mg/dL (35-242); Kappa Free Light Chain 1.44 mg/dL (0.33-1.94); Lambda Free Light Chain 28.61 mg/dL (0.57-2.63)
[2019-01-28 15:52] LABS: Albumin 58.9 % (55.8-66.1); Comment (See Note); Monoclonal Spike 7.3 % (None Seen); Total Protein 7.7 g/dL (6.3-8.2)
== END 2019-01-25 11:59 ==
PROVIDERS: PCP Registered Nurse; Visit Provider Internal Medicine Hematology & Oncology
DX: C90.00 Multiple myeloma not having achieved remission (principal)
CPT/HCPCS: 36415; 80053; 82784; 83883; 84165; 85025

== ENCOUNTER 2019-02-22 11:26 | Outpatient (CLI) | payer MEDICARE, BC, SELFPAY ==
[2019-02-22 11:55] LABS: Abs Immature Grans 0.01 k/cumm (0.0-0.09); Absolute Basophil Count 0.01 k/cumm (0.0-0.2); Absolute Eosinophil Count 0.11 k/cumm (0.0-0.7); Absolute Lymphocyte Count 1.52 k/cumm (1.2-3.4); Absolute Monocyte Count 0.74 k/cumm (0.11-0.7); Absolute Neutrophil Count 1.01 k/cumm (1.2-6.7); Basophils % 0.3; Eosinophils % 3.2; HCT 37.3 % (40.0-50.0); Immature Grans % 0.3 %; Lymphocytes % 44.7; Mean Corp. HGB Concentration 34.9 g/dL (32.0-36.0); Mean Corpuscular Hemoglobin 35.1 pg (27.0-33.0); Mean Corpuscular Volume 100.8 fL (80-95); Mean Platelet Volume 8.5 fL (8.0-11.0); Monocytes % 21.8; Neutrophils % 29.7; Platelet Count 227 x1000/uL (130-400)
[2019-02-22 12:06] LABS: ALT 53 U/L (16-63); AST 34 U/L (15-37); Albumin 3.6 g/dL (3.4-5.0); Alkaline Phosphatase 36 U/L (46-116); Anion Gap 9.7 mmol/L (3-11); BUN 8 mg/dL (7-18); Bilirubin, Total 0.4 mg/dL (0.2-1.0); CO2 26.3 mmol/L (21.0-32.0); CREATININE 0.98 mg/dL (0.70-1.30); Calcium 9.1 mg/dL (8.5-10.1); Chloride 105 mmol/L (98-107); Glucose 103 mg/dL (74-106); Potassium 3.9 mmol/L (3.5-5.1); Sodium 141 mmol/L (136-145); Total Protein 7.2 g/dL (6.4-8.2)
[2019-02-25 13:09] LABS: Albumin 58.5 % (55.8-66.1); Comment (See Note); Monoclonal Spike 6.5 % (None Seen); Total Protein 6.5 g/dL (6.3-8.2)
[2019-02-25 13:51] LABS: IgA 418 mg/dL (85-499); IgG 656 mg/dL (610-1,616); IgM 23 mg/dL (35-242); Kappa Free Light Chain 1.45 mg/dL (0.33-1.94)
== END 2019-02-22 11:46 ==
PROVIDERS: PCP Registered Nurse; Visit Provider Internal Medicine Hematology & Oncology
DX: C90.00 Multiple myeloma not having achieved remission (principal)
CPT/HCPCS: 36415; 80053; 82784; 83883; 84165; 85025

== ENCOUNTER 2019-03-22 12:29 | Outpatient (CLI) | payer MEDICARE, BC, SELFPAY ==
[2019-03-22 13:05] LABS: Abs Immature Grans 0.01 k/cumm (0.0-0.09); Absolute Basophil Count 0.02 k/cumm (0.0-0.2); Absolute Eosinophil Count 0.07 k/cumm (0.0-0.7); Absolute Lymphocyte Count 1.39 k/cumm (1.2-3.4); Absolute Monocyte Count 0.46 k/cumm (0.11-0.7); Absolute Neutrophil Count 0.53 k/cumm (1.2-6.7); Basophils % 0.8; Eosinophils % 2.8; HCT 38.1 % (40.0-50.0); HGB 13.2 g/dL (13.5-17.5); Immature Grans % 0.4 %; Mean Corp. HGB Concentration 34.6 g/dL (32.0-36.0); Mean Corpuscular Hemoglobin 35.3 pg (27.0-33.0); Mean Corpuscular Volume 101.9 fL (80-95); Mean Platelet Volume 9.1 fL (8.0-11.0); Monocytes % 18.5; Neutrophils % 21.5; Platelet Count 171 x1000/uL (130-400); RBC 3.74 m/cumm (4.50-6.00); RBC Distribution Width 14.5 % (11.8-14.1); White Blood Cell Count 2.48 k/cumm (4.4-10.8)
[2019-03-22 13:07] LABS: ALT 45 U/L (16-63); AST 27 U/L (15-37); Albumin 3.7 g/dL (3.4-5.0); Alkaline Phosphatase 45 U/L (46-116); Anion Gap 8.9 mmol/L (3-11); BUN 12 mg/dL (7-18); Bilirubin, Total 0.3 mg/dL (0.2-1.0); CO2 25.1 mmol/L (21.0-32.0); Calcium 8.7 mg/dL (8.5-10.1); Chloride 106 mmol/L (98-107); Glucose 105 mg/dL (74-106); Potassium 3.9 mmol/L (3.5-5.1); Sodium 140 mmol/L (136-145); Total Protein 7.2 g/dL (6.4-8.2)
[2019-03-22 13:22] LABS: Diff Comment Agrees w/ Instrument; RBC Morphology Normal
[2019-03-25 13:08] LABS: IgA 529 mg/dL (85-499); IgG 694 mg/dL (610-1,616); IgM 26 mg/dL (35-242); Kappa Free Light Chain 1.67 mg/dL (0.33-1.94); Lambda Free Light Chain 30.63 mg/dL (0.57-2.63)
[2019-03-25 14:20] LABS: Albumin 57.1 % (55.8-66.1); Comment (See Note); Monoclonal Spike 8.4 % (None Seen); Total Protein 6.8 g/dL (6.3-8.2)
== END 2019-03-22 12:49 ==
PROVIDERS: PCP Registered Nurse; Visit Provider Internal Medicine Hematology & Oncology
DX: C90.00 Multiple myeloma not having achieved remission (principal)
CPT/HCPCS: 36415; 80053; 82784; 83883; 84165; 85025

== ENCOUNTER 2019-04-19 11:43 | Outpatient (CLI) | payer MEDICARE, BC, SELFPAY ==
[2019-04-19 12:09] LABS: Absolute Basophil Count 0.01 k/cumm (0.0-0.2); Absolute Eosinophil Count 0.12 k/cumm (0.0-0.7); Absolute Lymphocyte Count 1.03 k/cumm (1.2-3.4); Absolute Neutrophil Count 0.77 k/cumm (1.2-6.7); Basophils % 0.4; Eosinophils % 4.9; HCT 37.5 % (40.0-50.0); Lymphocytes % 42.4; Mean Corp. HGB Concentration 34.7 g/dL (32.0-36.0); Mean Corpuscular Hemoglobin 34.8 pg (27.0-33.0); Mean Corpuscular Volume 100.3 fL (80-95); Monocytes % 20.6; Neutrophils % 31.7; Platelet Count 173 x1000/uL (130-400); RBC 3.74 m/cumm (4.50-6.00); RBC Distribution Width 13.7 % (11.8-14.1); White Blood Cell Count 2.43 k/cumm (4.4-10.8)
[2019-04-19 12:47] LABS: ALT 45 U/L (16-63); AST 27 U/L (15-37); Albumin 3.7 g/dL (3.4-5.0); Alkaline Phosphatase 36 U/L (46-116); BUN 16 mg/dL (7-18); Bilirubin, Total 0.4 mg/dL (0.2-1.0); CREATININE 1.08 mg/dL (0.70-1.30); Calcium 8.6 mg/dL (8.5-10.1); Chloride 105 mmol/L (98-107); Glucose 107 mg/dL (74-106); Potassium 4.2 mmol/L (3.5-5.1); Sodium 139 mmol/L (136-145); Total Protein 7.1 g/dL (6.4-8.2)
[2019-04-22 12:13] LABS: Albumin 57.5 % (55.8-66.1); Comment (See Note); Monoclonal Spike 7.5 % (None Seen); Total Protein 6.7 g/dL (6.3-8.2)
[2019-04-22 12:22] LABS: IgA 543 mg/dL (85-499); IgG 734 mg/dL (610-1,616); IgM 27 mg/dL (35-242); Kappa Free Light Chain 1.89 mg/dL (0.33-1.94); Lambda Free Light Chain 35.36 mg/dL (0.57-2.63)
== END 2019-04-19 12:03 ==
PROVIDERS: PCP Registered Nurse; Visit Provider Internal Medicine Hematology & Oncology
DX: C90.00 Multiple myeloma not having achieved remission (principal)
CPT/HCPCS: 36415; 80053; 82784; 83883; 84165; 85025

== ENCOUNTER 2019-05-17 11:57 | Outpatient (CLI) | payer MEDICARE, BC, SELFPAY ==
[2019-05-17 12:26] LABS: Abs Immature Grans 0.01 k/cumm (0.0-0.09); Absolute Eosinophil Count 0.16 k/cumm (0.0-0.7); Absolute Lymphocyte Count 1.27 k/cumm (1.2-3.4); Absolute Monocyte Count 0.51 k/cumm (0.11-0.7); Absolute Neutrophil Count 0.74 k/cumm (1.2-6.7); Eosinophils % 5.9; HCT 36.4 % (40.0-50.0); HGB 12.8 g/dL (13.5-17.5); Immature Grans % 0.4 %; Lymphocytes % 47.2; Mean Corp. HGB Concentration 35.2 g/dL (32.0-36.0); Mean Corpuscular Hemoglobin 35.8 pg (27.0-33.0); Mean Corpuscular Volume 101.7 fL (80-95); Mean Platelet Volume 8.6 fL (8.0-11.0); Neutrophils % 27.5; Platelet Count 175 x1000/uL (130-400); RBC 3.58 m/cumm (4.50-6.00); RBC Distribution Width 14.5 % (11.8-14.1); White Blood Cell Count 2.69 k/cumm (4.4-10.8)
[2019-05-17 12:45] LABS: ALT 46 U/L (16-63); AST 24 U/L (15-37); Albumin 3.9 g/dL (3.4-5.0); Alkaline Phosphatase 39 U/L (46-116); BUN 18 mg/dL (7-18); Bilirubin, Total 0.5 mg/dL (0.2-1.0); CREATININE 1.16 mg/dL (0.70-1.30); Calcium 9.1 mg/dL (8.5-10.1); Chloride 105 mmol/L (98-107); Glucose 107 mg/dL (74-106); Potassium 3.6 mmol/L (3.5-5.1); Sodium 142 mmol/L (136-145); Total Protein 7.5 g/dL (6.4-8.2)
[2019-05-20 10:01] LABS: IgA 702 mg/dL (85-499); IgG 674 mg/dL (610-1,616); IgM 24 mg/dL (35-242); Lambda Free Light Chain 37.06 mg/dL (0.57-2.63)
[2019-05-20 13:06] LABS: Albumin 56.4 % (55.8-66.1); Comment (See Note); Monoclonal Spike 10.4 % (None Seen); Total Protein 6.9 g/dL (6.3-8.2)
== END 2019-05-17 12:17 ==
PROVIDERS: PCP Registered Nurse; Visit Provider Internal Medicine Hematology & Oncology
DX: C90.00 Multiple myeloma not having achieved remission (principal)
CPT/HCPCS: 36415; 80053; 82784; 83883; 84165; 85025

== ENCOUNTER 2019-06-05 09:45 | Outpatient (RCR) | payer MEDICARE, BC, SELFPAY ==
[2019-06-05 11:12] LABS: Abs Immature Grans 0.01 k/cumm (0.0-0.09); Absolute Basophil Count 0.02 k/cumm (0.0-0.2); Absolute Eosinophil Count 0.14 k/cumm (0.0-0.7); Absolute Monocyte Count 0.51 k/cumm (0.11-0.7); Absolute Neutrophil Count 1.41 k/cumm (1.2-6.7); Basophils % 0.6; Eosinophils % 4.4; HCT 37.6 % (40.0-50.0); HGB 12.8 g/dL (13.5-17.5); Immature Grans % 0.3 %; Lymphocytes % 34.5; Mean Corpuscular Hemoglobin 34.8 pg (27.0-33.0); Mean Corpuscular Volume 102.2 fL (80-95); Mean Platelet Volume 9.5 fL (8.0-11.0); Neutrophils % 44.2; Platelet Count 219 x1000/uL (130-400); RBC 3.68 m/cumm (4.50-6.00); RBC Distribution Width 14.9 % (11.8-14.1); White Blood Cell Count 3.19 k/cumm (4.4-10.8)
== END 2019-06-20 23:59 | disposition home or self-care (01) ==
LOC: INF 09:45
PROVIDERS: PCP Registered Nurse; Visit Provider Internal Medicine Hematology & Oncology
DX: C90.00 Multiple myeloma not having achieved remission (principal)
CPT/HCPCS: 36415; 85025

== ENCOUNTER 2019-06-14 02:06 | Outpatient (CLI) | payer MEDICARE, BC, SELFPAY ==
[2019-06-14 11:36] LABS: Absolute Basophil Count 0.01 k/cumm (0.0-0.2); Absolute Eosinophil Count 0.21 k/cumm (0.0-0.7); Absolute Lymphocyte Count 1.38 k/cumm (1.2-3.4); Absolute Monocyte Count 0.44 k/cumm (0.11-0.7); Absolute Neutrophil Count 0.76 k/cumm (1.2-6.7); Basophils % 0.4; Eosinophils % 7.5; HGB 11.9 g/dL (13.5-17.5); Lymphocytes % 49.3; Mean Corpuscular Hemoglobin 34.9 pg (27.0-33.0); Mean Corpuscular Volume 102.6 fL (80-95); Monocytes % 15.7; Neutrophils % 27.1; Platelet Count 165 x1000/uL (130-400); RBC 3.41 m/cumm (4.50-6.00); RBC Distribution Width 14.7 % (11.8-14.1)
[2019-06-14 11:51] LABS: ALT 43 U/L (16-63); AST 25 U/L (15-37); Albumin 3.6 g/dL (3.4-5.0); Alkaline Phosphatase 36 U/L (46-116); Anion Gap 6.9 mmol/L (3-11); BUN 12 mg/dL (7-18); Bilirubin, Total 0.4 mg/dL (0.2-1.0); CO2 27.1 mmol/L (21.0-32.0); CREATININE 1.08 mg/dL (0.70-1.30); Calcium 8.9 mg/dL (8.5-10.1); Chloride 104 mmol/L (98-107); Glucose 94 mg/dL (74-106); Potassium 3.9 mmol/L (3.5-5.1); Sodium 138 mmol/L (136-145); Total Protein 7.3 g/dL (6.4-8.2)
[2019-06-17 13:12] LABS: Albumin 56.2 % (55.8-66.1); Comment (See Note); Monoclonal Spike 9.5 % (None Seen); Total Protein 6.8 g/dL (6.3-8.2)
[2019-06-17 14:14] LABS: IgA 629 mg/dL (85-499); IgG 680 mg/dL (610-1,616); IgM 21 mg/dL (35-242); Kappa Free Light Chain 1.96 mg/dL (0.33-1.94); Lambda Free Light Chain 34.44 mg/dL (0.57-2.63)
== END 2019-06-14 02:26 ==
PROVIDERS: PCP Registered Nurse; Visit Provider Internal Medicine Hematology & Oncology
DX: C90.00 Multiple myeloma not having achieved remission (principal)
CPT/HCPCS: 36415; 80053; 82784; 83883; 84165; 85025

== ENCOUNTER 2019-07-16 01:17 | Outpatient (RCR) | payer MEDICARE, BC, SELFPAY ==
[2019-06-24 11:41] LABS: Abs Immature Grans 0.01 k/cumm (0.0-0.09); Absolute Basophil Count 0.02 k/cumm (0.0-0.2); Absolute Eosinophil Count 0.06 k/cumm (0.0-0.7); Absolute Lymphocyte Count 1.57 k/cumm (1.2-3.4); Absolute Monocyte Count 0.64 k/cumm (0.11-0.7); Absolute Neutrophil Count 1.11 k/cumm (1.2-6.7); Basophils % 0.6; Eosinophils % 1.8; HCT 34.4 % (40.0-50.0); Immature Grans % 0.3 %; Mean Corp. HGB Concentration 34.9 g/dL (32.0-36.0); Mean Corpuscular Hemoglobin 35.9 pg (27.0-33.0); Mean Platelet Volume 8.2 fL (8.0-11.0); Monocytes % 18.8; Neutrophils % 32.5; Platelet Count 210 x1000/uL (130-400); RBC 3.34 m/cumm (4.50-6.00); RBC Distribution Width 14.7 % (11.8-14.1); White Blood Cell Count 3.41 k/cumm (4.4-10.8)
[2019-07-01 12:58] LABS: Abs Immature Grans 0.03 k/cumm (0.0-0.09); Absolute Basophil Count 0.01 k/cumm (0.0-0.2); Absolute Lymphocyte Count 1.26 k/cumm (1.2-3.4); Absolute Monocyte Count 0.57 k/cumm (0.11-0.7); Absolute Neutrophil Count 1.61 k/cumm (1.2-6.7); Basophils % 0.3; Eosinophils % 2.8; HCT 35.8 % (40.0-50.0); HGB 12.6 g/dL (13.5-17.5); Immature Grans % 0.8 %; Lymphocytes % 35.2; Mean Corp. HGB Concentration 35.2 g/dL (32.0-36.0); Mean Corpuscular Hemoglobin 36.3 pg (27.0-33.0); Mean Corpuscular Volume 103.2 fL (80-95); Mean Platelet Volume 9.4 fL (8.0-11.0); Monocytes % 15.9; Platelet Count 158 x1000/uL (130-400); RBC 3.47 m/cumm (4.50-6.00); RBC Distribution Width 14.7 % (11.8-14.1); White Blood Cell Count 3.58 k/cumm (4.4-10.8)
[2019-07-08 12:15] LABS: Abs Immature Grans 0.02 k/cumm (0.0-0.09); Absolute Eosinophil Count 0.07 k/cumm (0.0-0.7); Absolute Lymphocyte Count 0.88 k/cumm (1.2-3.4); Absolute Monocyte Count 0.57 k/cumm (0.11-0.7); Absolute Neutrophil Count 2.21 k/cumm (1.2-6.7); Eosinophils % 1.9; HCT 33.1 % (40.0-50.0); HGB 11.7 g/dL (13.5-17.5); Immature Grans % 0.5 %; Lymphocytes % 23.5; Mean Corp. HGB Concentration 35.3 g/dL (32.0-36.0); Mean Corpuscular Hemoglobin 35.2 pg (27.0-33.0); Mean Corpuscular Volume 99.7 fL (80-95); Mean Platelet Volume 9.6 fL (8.0-11.0); Monocytes % 15.2; Neutrophils % 58.9; RBC 3.32 m/cumm (4.50-6.00); RBC Distribution Width 13.8 % (11.8-14.1); White Blood Cell Count 3.75 k/cumm (4.4-10.8)
[2019-07-08 12:22] LABS: ALT 48 U/L (16-63); AST 23 U/L (15-37); Albumin 3.4 g/dL (3.4-5.0); Alkaline Phosphatase 32 U/L (46-116); Anion Gap 8.8 mmol/L (3-11); BUN 14 mg/dL (7-18); Bilirubin, Total 0.5 mg/dL (0.2-1.0); CO2 24.2 mmol/L (21.0-32.0); Calcium 8.8 mg/dL (8.5-10.1); Chloride 103 mmol/L (98-107); Glucose 102 mg/dL (74-106); Potassium 3.6 mmol/L (3.5-5.1); Sodium 136 mmol/L (136-145); Total Protein 6.7 g/dL (6.4-8.2)
[2019-07-08 12:27] LABS: Basophilic Stippling Present; Diff Comment RBC Morph Reviewed; Platelet Count 44 x1000/uL (130-400); Polychromasia Present
[2019-07-09 11:14] LABS: IgA 250 mg/dL (85-499); IgG 570 mg/dL (610-1,616); IgM 14 mg/dL (35-242); Kappa Free Light Chain 0.83 mg/dL (0.33-1.94); Lambda Free Light Chain 12.36 mg/dL (0.57-2.63)
[2019-07-09 16:15] LABS: Albumin 57.2 % (55.8-66.1); Comment (See Note); Monoclonal Spike 4.3 % (None Seen); Total Protein 6.2 g/dL (6.3-8.2)
[2019-07-16 12:59] LABS: Abs Immature Grans 0.04 k/cumm (0.0-0.09); Absolute Basophil Count 0.02 k/cumm (0.0-0.2); Absolute Eosinophil Count 0.08 k/cumm (0.0-0.7); Absolute Lymphocyte Count 1.06 k/cumm (1.2-3.4); Absolute Monocyte Count 0.56 k/cumm (0.11-0.7); Absolute Neutrophil Count 1.27 k/cumm (1.2-6.7); Basophils % 0.7; Eosinophils % 2.6; HCT 33.2 % (40.0-50.0); HGB 11.5 g/dL (13.5-17.5); Immature Grans % 1.3 %; Mean Corp. HGB Concentration 34.6 g/dL (32.0-36.0); Mean Corpuscular Hemoglobin 35.6 pg (27.0-33.0); Mean Corpuscular Volume 102.8 fL (80-95); Mean Platelet Volume 8.3 fL (8.0-11.0); Monocytes % 18.5; Neutrophils % 41.9; RBC 3.23 m/cumm (4.50-6.00); RBC Distribution Width 14.4 % (11.8-14.1); White Blood Cell Count 3.03 k/cumm (4.4-10.8)
[2019-07-16 13:02] LABS: Platelet Count 247 x1000/uL (130-400)
[2019-07-16 13:28] LABS: Calculated LDL 54 mg/dL (<100); Cholesterol 132 mg/dL (<200); HDL Cholesterol 52 mg/dL (40-60); Triglyceride 130 mg/dL (<150)
== END 2019-07-21 23:59 | disposition home or self-care (01) ==
LOC: INF 01:17
PROVIDERS: PCP Registered Nurse; Visit Provider Internal Medicine Hematology & Oncology
DX: C90.00 Multiple myeloma not having achieved remission (principal); E78.00 Pure hypercholesterolemia, unspecified
CPT/HCPCS: 36415; 80053; 80061; 82784; 83883; 84165; 85025

== ENCOUNTER 2019-08-19 01:50 | Outpatient (RCR) | payer MEDICARE, BC, SELFPAY ==
[2019-07-22 12:59] LABS: Abs Immature Grans 0.07 k/cumm (0.0-0.09); HCT 32.7 % (40.0-50.0); HGB 11.1 g/dL (13.5-17.5); Mean Corp. HGB Concentration 33.9 g/dL (32.0-36.0); Mean Corpuscular Hemoglobin 35.4 pg (27.0-33.0); Mean Corpuscular Volume 104.1 fL (80-95); Platelet Count 154 x1000/uL (130-400); RBC 3.14 m/cumm (4.50-6.00); RBC Distribution Width 14.3 % (11.8-14.1); White Blood Cell Count 3.34 k/cumm (4.4-10.8)
[2019-07-22 13:14] LABS: Absolute Lymphocyte Count 0.63 k/cumm (1.2-3.4); Absolute Monocyte Count 0.23 k/cumm (0.11-0.7); Absolute Neutrophil Count 2.27 k/cumm (1.2-6.7)
[2019-07-22 13:15] LABS: Diff Comment Manual Differential; RBC Morphology Normal
[2019-07-22 13:17] LABS: ALT 33 U/L (16-63); AST 17 U/L (15-37); Albumin 3.3 g/dL (3.4-5.0); Alkaline Phosphatase 35 U/L (46-116); Anion Gap 7.3 mmol/L (3-11); BUN 12 mg/dL (7-18); Bilirubin, Total 0.6 mg/dL (0.2-1.0); CO2 27.7 mmol/L (21.0-32.0); CREATININE 0.91 mg/dL (0.70-1.30); Calcium 8.9 mg/dL (8.5-10.1); Chloride 100 mmol/L (98-107); Glucose 89 mg/dL (74-106); Potassium 3.5 mmol/L (3.5-5.1); Sodium 135 mmol/L (136-145); Total Protein 6.8 g/dL (6.4-8.2)
[2019-07-29 12:26] LABS: Abs Immature Grans 0.04 k/cumm (0.0-0.09); Absolute Basophil Count 0.01 k/cumm (0.0-0.2); Absolute Eosinophil Count 0.06 k/cumm (0.0-0.7); Absolute Lymphocyte Count 0.93 k/cumm (1.2-3.4); Absolute Monocyte Count 0.57 k/cumm (0.11-0.7); Absolute Neutrophil Count 2.18 k/cumm (1.2-6.7); Basophils % 0.3; Eosinophils % 1.6; HCT 31.5 % (40.0-50.0); HGB 10.7 g/dL (13.5-17.5); Immature Grans % 1.1 %; Lymphocytes % 24.5; Mean Corpuscular Hemoglobin 34.9 pg (27.0-33.0); Mean Corpuscular Volume 102.6 fL (80-95); Mean Platelet Volume 12.1 fL (8.0-11.0); Neutrophils % 57.5; RBC 3.07 m/cumm (4.50-6.00); RBC Distribution Width 13.8 % (11.8-14.1); White Blood Cell Count 3.79 k/cumm (4.4-10.8)
[2019-07-29 12:41] LABS: Macrocytosis 3+; Platelet Count 69 x1000/uL (130-400)
[2019-07-29 12:42] LABS: Diff Comment Agrees w/ Instrument
[2019-07-29 12:46] LABS: ALT 44 U/L (16-63); AST 25 U/L (15-37); Albumin 3.2 g/dL (3.4-5.0); Alkaline Phosphatase 39 U/L (46-116); Anion Gap 10.4 mmol/L (3-11); BUN 16 mg/dL (7-18); Bilirubin, Total 0.5 mg/dL (0.2-1.0); CO2 23.6 mmol/L (21.0-32.0); CREATININE 1.07 mg/dL (0.70-1.30); Calcium 8.9 mg/dL (8.5-10.1); Chloride 102 mmol/L (98-107); Glucose 93 mg/dL (74-106); Potassium 3.6 mmol/L (3.5-5.1); Sodium 136 mmol/L (136-145); Total Protein 6.7 g/dL (6.4-8.2)
[2019-07-30 10:55] LABS: IgA 130 mg/dL (85-499); IgG 518 mg/dL (610-1,616); IgM 33 mg/dL (35-242); Kappa Free Light Chain 1.47 mg/dL (0.33-1.94); Lambda Free Light Chain 9.38 mg/dL (0.57-2.63)
[2019-07-30 14:30] LABS: Albumin 55.8 % (55.8-66.1); Comment (See Note); Monoclonal Spike 2.1 % (None Seen); Total Protein 6.2 g/dL (6.3-8.2)
[2019-08-05 13:26] LABS: Abs Immature Grans 0.02 k/cumm (0.0-0.09); Absolute Basophil Count 0.02 k/cumm (0.0-0.2); Absolute Lymphocyte Count 2.13 k/cumm (1.2-3.4); Absolute Monocyte Count 0.67 k/cumm (0.11-0.7); Absolute Neutrophil Count 1.33 k/cumm (1.2-6.7); Basophils % 0.5; Eosinophils % 2.3; HCT 32.3 % (40.0-50.0); HGB 10.8 g/dL (13.5-17.5); Immature Grans % 0.5 %; Lymphocytes % 49.9; Mean Corp. HGB Concentration 33.4 g/dL (32.0-36.0); Mean Corpuscular Hemoglobin 34.8 pg (27.0-33.0); Mean Corpuscular Volume 104.2 fL (80-95); Mean Platelet Volume 8.7 fL (8.0-11.0); Monocytes % 15.7; Neutrophils % 31.1; RBC Distribution Width 14.2 % (11.8-14.1); White Blood Cell Count 4.27 k/cumm (4.4-10.8)
[2019-08-05 13:35] LABS: Platelet Count 329 x1000/uL (130-400)
[2019-08-12 12:55] LABS: Abs Immature Grans 0.03 k/cumm (0.0-0.09); Absolute Basophil Count 0.01 k/cumm (0.0-0.2); Absolute Eosinophil Count 0.06 k/cumm (0.0-0.7); Absolute Lymphocyte Count 2.03 k/cumm (1.2-3.4); Absolute Monocyte Count 0.31 k/cumm (0.11-0.7); Absolute Neutrophil Count 1.83 k/cumm (1.2-6.7); Basophils % 0.2; Eosinophils % 1.4; HCT 30.7 % (40.0-50.0); HGB 10.2 g/dL (13.5-17.5); Immature Grans % 0.7 %; Lymphocytes % 47.5; Mean Corp. HGB Concentration 33.2 g/dL (32.0-36.0); Mean Corpuscular Hemoglobin 34.3 pg (27.0-33.0); Mean Corpuscular Volume 103.4 fL (80-95); Mean Platelet Volume 8.9 fL (8.0-11.0); Monocytes % 7.3; Neutrophils % 42.9; Platelet Count 167 x1000/uL (130-400); RBC 2.97 m/cumm (4.50-6.00); RBC Distribution Width 13.8 % (11.8-14.1); White Blood Cell Count 4.27 k/cumm (4.4-10.8)
[2019-08-19 12:35] LABS: Abs Immature Grans 0.04 k/cumm (0.0-0.09); Absolute Eosinophil Count 0.02 k/cumm (0.0-0.7); Absolute Lymphocyte Count 1.32 k/cumm (1.2-3.4); Absolute Monocyte Count 0.48 k/cumm (0.11-0.7); Absolute Neutrophil Count 2.61 k/cumm (1.2-6.7); Eosinophils % 0.4; HCT 30.1 % (40.0-50.0); HGB 10.2 g/dL (13.5-17.5); Immature Grans % 0.9 %; Lymphocytes % 29.5; Mean Corp. HGB Concentration 33.9 g/dL (32.0-36.0); Mean Corpuscular Hemoglobin 35.1 pg (27.0-33.0); Mean Corpuscular Volume 103.4 fL (80-95); Mean Platelet Volume 10.5 fL (8.0-11.0); Monocytes % 10.7; Neutrophils % 58.5; Platelet Count 121 x1000/uL (130-400); RBC 2.91 m/cumm (4.50-6.00); RBC Distribution Width 14.3 % (11.8-14.1); White Blood Cell Count 4.47 k/cumm (4.4-10.8)
[2019-08-19 12:48] LABS: ALT 28 U/L (16-63); AST 18 U/L (15-37); Albumin 3.1 g/dL (3.4-5.0); Alkaline Phosphatase 49 U/L (46-116); Anion Gap 9.2 mmol/L (3-11); BUN 9 mg/dL (7-18); Bilirubin, Total 0.5 mg/dL (0.2-1.0); CO2 23.8 mmol/L (21.0-32.0); CREATININE 0.96 mg/dL (0.70-1.30); Calcium 8.3 mg/dL (8.5-10.1); Chloride 104 mmol/L (98-107); Glucose 99 mg/dL (74-106); Potassium 3.3 mmol/L (3.5-5.1); Sodium 137 mmol/L (136-145); Total Protein 6.1 g/dL (6.4-8.2)
[2019-08-20 10:52] LABS: IgA 109 mg/dL (85-499); IgG 542 mg/dL (610-1,616); IgM 48 mg/dL (35-242); Kappa Free Light Chain 1.31 mg/dL (0.33-1.94)
[2019-08-20 13:19] LABS: Albumin 59.4 % (55.8-66.1); Comment (See Note); Total Protein 5.5 g/dL (6.3-8.2)
== END 2019-08-20 23:59 | disposition home or self-care (01) ==
LOC: INF 01:50
PROVIDERS: PCP Registered Nurse; Visit Provider Internal Medicine Hematology & Oncology
DX: C90.00 Multiple myeloma not having achieved remission (principal); E78.00 Pure hypercholesterolemia, unspecified
CPT/HCPCS: 36415; 80053; 82784; 83883; 84165; 85025

== ENCOUNTER 2019-09-16 01:36 | Outpatient (RCR) | payer MEDICARE, BC, SELFPAY ==
[2019-09-02 12:41] LABS: Abs Immature Grans 0.02 k/cumm (0.0-0.09); Absolute Basophil Count 0.03 k/cumm (0.0-0.2); Absolute Eosinophil Count 0.05 k/cumm (0.0-0.7); Absolute Lymphocyte Count 1.83 k/cumm (1.2-3.4); Absolute Monocyte Count 0.55 k/cumm (0.11-0.7); Absolute Neutrophil Count 1.95 k/cumm (1.2-6.7); Basophils % 0.7; Eosinophils % 1.1; HCT 35.5 % (40.0-50.0); HGB 11.6 g/dL (13.5-17.5); Immature Grans % 0.5 %; Lymphocytes % 41.3; Mean Corp. HGB Concentration 32.7 g/dL (32.0-36.0); Mean Corpuscular Hemoglobin 33.9 pg (27.0-33.0); Mean Corpuscular Volume 103.8 fL (80-95); Mean Platelet Volume 8.4 fL (8.0-11.0); Monocytes % 12.4; Platelet Count 252 x1000/uL (130-400); RBC 3.42 m/cumm (4.50-6.00); RBC Distribution Width 14.1 % (11.8-14.1); White Blood Cell Count 4.43 k/cumm (4.4-10.8)
[2019-09-02 12:52] LABS: ALT 16 U/L (16-63); AST 14 U/L (15-37); Albumin 3.7 g/dL (3.4-5.0); Alkaline Phosphatase 47 U/L (46-116); Anion Gap 8.5 mmol/L (3-11); BUN 11 mg/dL (7-18); Bilirubin, Total 0.5 mg/dL (0.2-1.0); CO2 26.5 mmol/L (21.0-32.0); Chloride 104 mmol/L (98-107); Glucose 105 mg/dL (74-106); Potassium 4.2 mmol/L (3.5-5.1); Sodium 139 mmol/L (136-145); Total Protein 7.1 g/dL (6.4-8.2)
[2019-09-09 12:33] LABS: Abs Immature Grans 0.07 k/cumm (0.0-0.09); Absolute Basophil Count 0.02 k/cumm (0.0-0.2); Absolute Eosinophil Count 0.15 k/cumm (0.0-0.7); Absolute Lymphocyte Count 1.78 k/cumm (1.2-3.4); Absolute Monocyte Count 0.76 k/cumm (0.11-0.7); Absolute Neutrophil Count 2.91 k/cumm (1.2-6.7); Basophils % 0.4; Eosinophils % 2.6; HCT 34.4 % (40.0-50.0); HGB 11.6 g/dL (13.5-17.5); Immature Grans % 1.2 %; Lymphocytes % 31.3; Mean Corp. HGB Concentration 33.7 g/dL (32.0-36.0); Mean Corpuscular Hemoglobin 34.6 pg (27.0-33.0); Mean Corpuscular Volume 102.7 fL (80-95); Monocytes % 13.4; Neutrophils % 51.1; Platelet Count 224 x1000/uL (130-400); RBC 3.35 m/cumm (4.50-6.00); White Blood Cell Count 5.69 k/cumm (4.4-10.8)
[2019-09-09 12:57] LABS: ALT 22 U/L (16-63); AST 13 U/L (15-37); Albumin 3.7 g/dL (3.4-5.0); Alkaline Phosphatase 38 U/L (46-116); Anion Gap 9.7 mmol/L (3-11); BUN 9 mg/dL (7-18); Bilirubin, Total 0.5 mg/dL (0.2-1.0); CO2 25.3 mmol/L (21.0-32.0); CREATININE 0.88 mg/dL (0.70-1.30); Calcium 8.9 mg/dL (8.5-10.1); Chloride 103 mmol/L (98-107); Glucose 94 mg/dL (74-106); Potassium 3.7 mmol/L (3.5-5.1); Sodium 138 mmol/L (136-145); Total Protein 6.8 g/dL (6.4-8.2)
[2019-09-16 12:48] LABS: Abs Immature Grans 0.06 k/cumm (0.0-0.09); Absolute Lymphocyte Count 1.49 k/cumm (1.2-3.4); Absolute Monocyte Count 0.75 k/cumm (0.11-0.7); Absolute Neutrophil Count 3.67 k/cumm (1.2-6.7); Eosinophils % 1.6; HCT 37.4 % (40.0-50.0); HGB 12.4 g/dL (13.5-17.5); Lymphocytes % 24.5; Mean Corp. HGB Concentration 33.2 g/dL (32.0-36.0); Mean Corpuscular Hemoglobin 33.9 pg (27.0-33.0); Mean Corpuscular Volume 102.2 fL (80-95); Mean Platelet Volume 10.3 fL (8.0-11.0); Monocytes % 12.4; Neutrophils % 60.5; Platelet Count 166 x1000/uL (130-400); RBC 3.66 m/cumm (4.50-6.00); RBC Distribution Width 13.9 % (11.8-14.1); White Blood Cell Count 6.07 k/cumm (4.4-10.8)
[2019-09-16 13:02] LABS: ALT 31 U/L (16-63); AST 17 U/L (15-37); Albumin 3.8 g/dL (3.4-5.0); Alkaline Phosphatase 40 U/L (46-116); Anion Gap 9.4 mmol/L (3-11); BUN 8 mg/dL (7-18); Bilirubin, Total 0.5 mg/dL (0.2-1.0); CO2 26.6 mmol/L (21.0-32.0); CREATININE 0.89 mg/dL (0.70-1.30); Calcium 8.9 mg/dL (8.5-10.1); Chloride 101 mmol/L (98-107); Glucose 101 mg/dL (74-106); Potassium 3.7 mmol/L (3.5-5.1); Sodium 137 mmol/L (136-145)
[2019-09-17 11:34] LABS: IgA 113 mg/dL (85-499); IgG 617 mg/dL (610-1,616); IgM 31 mg/dL (35-242); Kappa Free Light Chain 1.06 mg/dL (0.33-1.94)
[2019-09-17 13:18] LABS: Albumin 60.9 % (55.8-66.1); Comment (See Note); Total Protein 6.4 g/dL (6.3-8.2)
== END 2019-09-20 23:59 | disposition home or self-care (01) ==
LOC: INF 01:36
PROVIDERS: PCP Registered Nurse; Visit Provider Internal Medicine Hematology & Oncology
DX: C90.00 Multiple myeloma not having achieved remission (principal)
CPT/HCPCS: 36415; 80053; 82784; 83883; 84165; 85025

== ENCOUNTER 2019-10-16 01:42 | Outpatient (RCR) | payer MEDICARE, BC, SELFPAY ==
[2019-10-16 13:55] LABS: Abs Immature Grans 0.08 10^3/uL (0.0-0.06); Absolute Basophil Count 0.01 10^3/uL (0.0-0.2); Absolute Eosinophil Count 0.07 10^3/uL (0.0-0.7); Absolute Lymphocyte Count 1.41 10^3/uL (1.2-3.4); Absolute Monocyte Count 0.37 10^3/uL (0.1-0.8); Absolute Neutrophil Count 8.31 10^3/uL (1.2-6.7); Basophils % 0.1; Eosinophils % 0.7; HCT 36.6 % (40.0-50.0); HGB 12.5 g/dL (13.5-17.5); Immature Grans % 0.8; Lymphocytes % 13.8; MCH 34.4 pg (27.0-33.0); MCHC 34.2 % (32.0-36.0); MCV 100.8 fL (80-95); MPV 9.4 fL (8.0-11.0); Monocytes % 3.6; Nucleated RBC 0 %; Platelet Count 204 10^3/uL (130-400); RBC 3.63 10^6/uL (4.36-5.78); RDW 13.8 % (11.8-14.1); RDW-SD 50.5 fL; WBC 10.25 10^3/uL (4.4-10.8)
[2019-10-16 14:25] LABS: ALT 24 U/L (16-63); AST 11 U/L (15-37); Alkaline Phosphatase 34 U/L (46-116); Anion Gap 3.7 mmol/L (3-11); BUN 14 mg/dL (7-18); Bilirubin, Total 0.4 mg/dL (0.2-1.0); CO2 27.3 mmol/L (21.0-32.0); CREATININE 0.81 mg/dL (0.70-1.30); Calcium 8.9 mg/dL (8.5-10.1); Calculated LDL 41 mg/dL (<100); Chloride 105 mmol/L (98-107); Cholesterol 122 mg/dL (<200); Glucose 125 mg/dL (74-106); HDL Cholesterol 44 mg/dL (40-60); Potassium 4.3 mmol/L (3.5-5.1); Sodium 136 mmol/L (136-145); Total Protein 6.7 g/dL (6.4-8.2); Triglyceride 188 mg/dL (<150)
[2019-10-17 10:18] LABS: IgA 102 mg/dL (85-499); IgG 566 mg/dL (610-1,616); IgM 26 mg/dL (35-242); Kappa Free Light Chain 0.77 mg/dL (0.33-1.94); Lambda Free Light Chain 4.59 mg/dL (0.57-2.63)
[2019-10-17 12:44] LABS: Albumin 62.5 % (55.8-66.1); Comment (See Note); Total Protein 6.4 g/dL (6.3-8.2)
== END 2019-10-21 23:59 | disposition home or self-care (01) ==
LOC: INF 01:42
PROVIDERS: PCP Registered Nurse; Visit Provider Internal Medicine Hematology & Oncology
DX: C90.00 Multiple myeloma not having achieved remission (principal); E78.00 Pure hypercholesterolemia, unspecified
CPT/HCPCS: 36415; 80053; 80061; 82784; 83883; 84165; 85025

== ENCOUNTER 2019-10-30 01:49 | Outpatient (RCR) | payer MEDICARE, BC, SELFPAY ==
[2019-10-24 11:14] LABS: Abs Immature Grans 0.02 10^3/uL (0.0-0.06); Absolute Basophil Count 0.01 10^3/uL (0.0-0.2); Absolute Lymphocyte Count 1.47 10^3/uL (1.2-3.4); Absolute Monocyte Count 0.65 10^3/uL (0.1-0.8); Basophils % 0.2; Eosinophils % 1.7; HCT 35.9 % (40.0-50.0); HGB 12.1 g/dL (13.5-17.5); Immature Grans % 0.3; Lymphocytes % 24.7; MCH 33.9 pg (27.0-33.0); MCHC 33.7 % (32.0-36.0); MCV 100.6 fL (80-95); MPV 9.6 fL (8.0-11.0); Monocytes % 10.9; Neutrophils % 62.2; Nucleated RBC 0 %; Platelet Count 195 10^3/uL (130-400); RBC 3.57 10^6/uL (4.36-5.78); RDW-SD 51.4 fL; WBC 5.95 10^3/uL (4.4-10.8)
[2019-10-24 11:29] LABS: ALT 22 U/L (16-63); AST 12 U/L (15-37); Albumin 3.7 g/dL (3.4-5.0); Alkaline Phosphatase 32 U/L (46-116); Anion Gap 6.1 mmol/L (3-11); BUN 8 mg/dL (7-18); Bilirubin, Total 0.5 mg/dL (0.2-1.0); CO2 27.9 mmol/L (21.0-32.0); CREATININE 0.76 mg/dL (0.70-1.30); Calcium 8.9 mg/dL (8.5-10.1); Calculated LDL 38 mg/dL (<100); Chloride 106 mmol/L (98-107); Cholesterol 116 mg/dL (<200); Glucose 98 mg/dL (74-106); HDL Cholesterol 42 mg/dL (40-60); Sodium 140 mmol/L (136-145); Total Protein 6.5 g/dL (6.4-8.2); Triglyceride 182 mg/dL (<150)
[2019-10-25 09:35] LABS: IgA 95 mg/dL (85-499); IgG 548 mg/dL (610-1,616); IgM 24 mg/dL (35-242); Lambda Free Light Chain 5.11 mg/dL (0.57-2.63)
[2019-10-25 13:38] LABS: Albumin 62.9 % (55.8-66.1); Comment (See Note); Total Protein 6.3 g/dL (6.3-8.2)
== END 2019-11-20 23:59 | disposition home or self-care (01) ==
LOC: INF 01:49
PROVIDERS: PCP Registered Nurse; Visit Provider Internal Medicine Hematology & Oncology
DX: C90.00 Multiple myeloma not having achieved remission (principal); E78.00 Pure hypercholesterolemia, unspecified
CPT/HCPCS: 36415; 80053; 80061; 82784; 83883; 84165; 85025

== ENCOUNTER 2019-12-19 10:00 | Outpatient (RCR) | payer MEDICARE, BC, SELFPAY ==
[2019-11-21 10:58] LABS: Abs Immature Grans 0.03 10^3/uL (0.0-0.06); Absolute Basophil Count 0.01 10^3/uL (0.0-0.2); Absolute Eosinophil Count 0.07 10^3/uL (0.0-0.7); Absolute Lymphocyte Count 1.58 10^3/uL (1.2-3.4); Absolute Monocyte Count 0.64 10^3/uL (0.1-0.8); Absolute Neutrophil Count 3.63 10^3/uL (1.2-6.7); Basophils % 0.2; Eosinophils % 1.2; HCT 40.5 % (40.0-50.0); HGB 13.5 g/dL (13.5-17.5); Immature Grans % 0.5; Lymphocytes % 26.5; MCH 34.2 pg (27.0-33.0); MCHC 33.3 % (32.0-36.0); MCV 102.5 fL (80-95); MPV 9.2 fL (8.0-11.0); Monocytes % 10.7; Neutrophils % 60.9; Nucleated RBC 0 %; Platelet Count 230 10^3/uL (130-400); RBC 3.95 10^6/uL (4.36-5.78); RDW 14.1 % (11.8-14.1); RDW-SD 53.3 fL; WBC 5.96 10^3/uL (4.4-10.8)
[2019-11-21 11:17] LABS: ALT 46 U/L (16-63); AST 29 U/L (15-37); Albumin 3.9 g/dL (3.4-5.0); Alkaline Phosphatase 25 U/L (46-116); Anion Gap 4.6 mmol/L (3-11); BUN 10 mg/dL (7-18); Bilirubin, Total 0.4 mg/dL (0.2-1.0); CO2 28.4 mmol/L (21.0-32.0); CREATININE 0.72 mg/dL (0.70-1.30); Calcium 8.8 mg/dL (8.5-10.1); Calculated LDL 28 mg/dL (<100); Chloride 106 mmol/L (98-107); Cholesterol 120 mg/dL (<200); Glucose 104 mg/dL (74-106); HDL Cholesterol 43 mg/dL (40-60); Sodium 139 mmol/L (136-145); Total Protein 6.8 g/dL (6.4-8.2); Triglyceride 249 mg/dL (<150)
[2019-11-22 09:04] LABS: IgA 105 mg/dL (85-499); IgG 556 mg/dL (610-1,616); IgM 33 mg/dL (35-242); Kappa Free Light Chain 0.83 mg/dL (0.33-1.94); Lambda Free Light Chain 5.27 mg/dL (0.57-2.63)
[2019-11-22 12:57] LABS: Albumin 63.9 % (55.8-66.1); Comment (See Note); Total Protein 6.3 g/dL (6.3-8.2)
[2019-12-19 11:39] LABS: Abs Immature Grans 0.03 10^3/uL (0.0-0.06); Absolute Basophil Count 0.01 10^3/uL (0.0-0.2); Absolute Eosinophil Count 0.08 10^3/uL (0.0-0.7); Absolute Lymphocyte Count 1.65 10^3/uL (1.2-3.4); Absolute Monocyte Count 0.65 10^3/uL (0.1-0.8); Absolute Neutrophil Count 3.93 10^3/uL (1.2-6.7); Basophils % 0.2; Eosinophils % 1.3; HCT 36.4 % (40.0-50.0); HGB 12.4 g/dL (13.5-17.5); Immature Grans % 0.5; MCH 34.5 pg (27.0-33.0); MCHC 34.1 % (32.0-36.0); MCV 101.4 fL (80-95); MPV 9.4 fL (8.0-11.0); Monocytes % 10.2; Neutrophils % 61.8; Nucleated RBC 0 %; Platelet Count 230 10^3/uL (130-400); RBC 3.59 10^6/uL (4.36-5.78); RDW-SD 52.2 fL; WBC 6.35 10^3/uL (4.4-10.8)
[2019-12-19 12:03] LABS: ALT 25 U/L (16-63); AST 14 U/L (15-37); Albumin 3.5 g/dL (3.4-5.0); Alkaline Phosphatase 36 U/L (46-116); Anion Gap 5.1 mmol/L (3-11); BUN 6 mg/dL (7-18); Bilirubin, Total 0.6 mg/dL (0.2-1.0); CO2 28.9 mmol/L (21.0-32.0); Calcium 9.4 mg/dL (8.5-10.1); Chloride 104 mmol/L (98-107); Glucose 80 mg/dL (74-106); Potassium 4.1 mmol/L (3.5-5.1); Sodium 138 mmol/L (136-145); TSH 2.01 uIU/mL (0.36-3.74); Total Protein 6.7 g/dL (6.4-8.2)
[2019-12-26 12:25] LABS: IgA 111 mg/dL (84.5-499); IgG 596 mg/dL (610-1616); IgM 35 mg/dL (35-242)
[2019-12-26 12:34] LABS: Kappa Free Light Chain 1.01 mg/dL (0.33-1.94); Lambda Free Light Chain 6.56 mg/dL (0.57-2.63)
[2019-12-27 10:12] LABS: Albumin 58.8 % (55.8-66.1); Total Protein 6.3 g/dL (6.3-8.2)
[2019-12-27 10:14] LABS: Comment See Comments
== END 2019-12-21 23:59 | disposition home or self-care (01) ==
LOC: INF 10:00
PROVIDERS: PCP Registered Nurse; Visit Provider Internal Medicine Hematology & Oncology
DX: E78.00 Pure hypercholesterolemia, unspecified (principal); C90.00 Multiple myeloma not having achieved remission; R53.83 Other fatigue
CPT/HCPCS: 36415; 80053; 80061; 82784; 83883; 84165; 84443; 85025

== ENCOUNTER 2020-01-20 02:11 | Outpatient (RCR) | payer MEDICARE, BC, SELFPAY ==
[2020-01-20 11:39] LABS: Abs Immature Grans 0.02 10^3/uL (0.0-0.06); Absolute Basophil Count 0.01 10^3/uL (0.0-0.2); Absolute Eosinophil Count 0.04 10^3/uL (0.0-0.7); Absolute Lymphocyte Count 1.62 10^3/uL (1.2-3.4); Absolute Monocyte Count 0.76 10^3/uL (0.1-0.8); Absolute Neutrophil Count 3.66 10^3/uL (1.2-6.7); Basophils % 0.2; Eosinophils % 0.7; HCT 40.9 % (40.0-50.0); HGB 13.7 g/dL (13.5-17.5); Immature Grans % 0.3; Lymphocytes % 26.5; MCH 34.6 pg (27.0-33.0); MCHC 33.5 % (32.0-36.0); MCV 103.3 fL (80-95); MPV 9.1 fL (8.0-11.0); Monocytes % 12.4; Neutrophils % 59.9; Nucleated RBC 0 %; Platelet Count 324 10^3/uL (130-400); RBC 3.96 10^6/uL (4.36-5.78); RDW 14.2 % (11.8-14.1); RDW-SD 53.5 fL; WBC 6.11 10^3/uL (4.4-10.8)
[2020-01-20 11:53] LABS: ALT 18 U/L (16-63); AST 13 U/L (15-37); Albumin 3.9 g/dL (3.4-5.0); Alkaline Phosphatase 47 U/L (46-116); Anion Gap 4.8 mmol/L (3-11); BUN 9 mg/dL (7-18); Bilirubin, Total 0.5 mg/dL (0.2-1.0); CO2 28.2 mmol/L (21.0-32.0); CREATININE 0.98 mg/dL (0.70-1.30); Calcium 9.1 mg/dL (8.5-10.1); Chloride 105 mmol/L (98-107); Glucose 94 mg/dL (74-106); Potassium 3.9 mmol/L (3.5-5.1); Sodium 138 mmol/L (136-145)
[2020-01-21 11:02] LABS: Kappa Free Light Chain 1.08 mg/dL (0.33-1.94); Lambda Free Light Chain 9.26 mg/dL (0.57-2.63)
[2020-01-21 14:37] LABS: Albumin 59.7 % (55.8-66.1); Comment (See Note); Total Protein 6.6 g/dL (6.3-8.2)
== END 2020-01-20 23:59 | disposition home or self-care (01) ==
LOC: INF 02:11
PROVIDERS: PCP Registered Nurse; Visit Provider Internal Medicine Hematology & Oncology
DX: C90.00 Multiple myeloma not having achieved remission (principal); E78.00 Pure hypercholesterolemia, unspecified
CPT/HCPCS: 36415; 80053; 83883; 84165; 85025

== ENCOUNTER 2020-03-18 02:12 | Outpatient (RCR) | payer MEDICARE, BC, SELFPAY ==
[2020-03-02 11:09] LABS: Abs Immature Grans 0.02 10^3/uL (0.0-0.06); Absolute Basophil Count 0.01 10^3/uL (0.0-0.2); Absolute Eosinophil Count 0.07 10^3/uL (0.0-0.7); Absolute Lymphocyte Count 1.41 10^3/uL (1.2-3.4); Absolute Monocyte Count 0.71 10^3/uL (0.1-0.8); Absolute Neutrophil Count 3.66 10^3/uL (1.2-6.7); Basophils % 0.2; Eosinophils % 1.2; HCT 48.3 % (40.0-50.0); HGB 16.3 g/dL (13.5-17.5); Immature Grans % 0.3; MCH 35.3 pg (27.0-33.0); MCHC 33.7 % (32.0-36.0); MCV 104.5 fL (80-95); MPV 9.6 fL (8.0-11.0); Monocytes % 12.1; Neutrophils % 62.2; Nucleated RBC 0 %; Platelet Count 259 10^3/uL (130-400); RBC 4.62 10^6/uL (4.36-5.78); RDW 13.6 % (11.8-14.1); RDW-SD 53.6 fL; WBC 5.88 10^3/uL (4.4-10.8)
[2020-03-02 11:31] LABS: ALT 24 U/L (16-63); AST 16 U/L (15-37); Albumin 4.2 g/dL (3.4-5.0); Alkaline Phosphatase 43 U/L (46-116); Anion Gap 7.6 mmol/L (3-11); BUN 9 mg/dL (7-18); Bilirubin, Total 0.9 mg/dL (0.2-1.0); CO2 29.4 mmol/L (21.0-32.0); CREATININE 0.93 mg/dL (0.70-1.30); Calcium 9.5 mg/dL (8.5-10.1); Calculated LDL 30 mg/dL (<100); Chloride 104 mmol/L (98-107); Cholesterol 109 mg/dL (<200); Glucose 96 mg/dL (74-106); HDL Cholesterol 44 mg/dL (40-60); Potassium 3.6 mmol/L (3.5-5.1); Sodium 141 mmol/L (136-145); TSH 1.53 uIU/mL (0.36-3.74); Total Protein 7.6 g/dL (6.4-8.2); Triglyceride 177 mg/dL (<150)
[2020-03-03 10:10] LABS: IgA 154 mg/dL (85-499); IgG 610 mg/dL (610-1,616); IgM 31 mg/dL (35-242); Kappa Free Light Chain 1.03 mg/dL (0.33-1.94); Lambda Free Light Chain 10.37 mg/dL (0.57-2.63)
[2020-03-03 14:18] LABS: Albumin 61.2 % (55.8-66.1); Comment (See Note); Monoclonal Spike 2.3 % (None Seen)
== END 2020-03-22 23:59 | disposition home or self-care (01) ==
LOC: INF 02:12
PROVIDERS: PCP Registered Nurse; Visit Provider Internal Medicine Hematology & Oncology
DX: C90.00 Multiple myeloma not having achieved remission (principal); R53.83 Other fatigue; E78.00 Pure hypercholesterolemia, unspecified
CPT/HCPCS: 36415; 80053; 80061; 82784; 83883; 84165; 84443; 85025

== ENCOUNTER 2020-04-13 02:57 | Outpatient (CLI) | payer MEDICARE, BC, SELFPAY ==
[2020-04-13 11:58] LABS: Abs Immature Grans 0.02 10^3/uL (0.0-0.06); Absolute Basophil Count 0.03 10^3/uL (0.0-0.2); Absolute Eosinophil Count 0.08 10^3/uL (0.0-0.7); Absolute Lymphocyte Count 1.12 10^3/uL (1.2-3.4); Absolute Monocyte Count 0.75 10^3/uL (0.1-0.8); Absolute Neutrophil Count 2.87 10^3/uL (1.2-6.7); Basophils % 0.6; Eosinophils % 1.6; HCT 43.5 % (40.0-50.0); Immature Grans % 0.4; MCH 34.6 pg (27.0-33.0); MCHC 34.5 % (32.0-36.0); MCV 100.5 fL (80-95); MPV 9.3 fL (8.0-11.0); Monocytes % 15.4; Nucleated RBC 0 %; Platelet Count 211 10^3/uL (130-400); RBC 4.33 10^6/uL (4.36-5.78); RDW-SD 45.2 fL; WBC 4.87 10^3/uL (4.4-10.8)
[2020-04-13 12:19] LABS: ALT 26 U/L (16-63); AST 20 U/L (15-37); Albumin 3.8 g/dL (3.4-5.0); Alkaline Phosphatase 43 U/L (46-116); Anion Gap 7.4 mmol/L (3-11); BUN 11 mg/dL (7-18); Bilirubin, Total 0.4 mg/dL (0.2-1.0); CO2 28.6 mmol/L (21.0-32.0); CREATININE 0.8 mg/dL (0.70-1.30); Calcium 9.8 mg/dL (8.5-10.1); Chloride 104 mmol/L (98-107); Glucose 92 mg/dL (74-106); Potassium 4.5 mmol/L (3.5-5.1); Sodium 140 mmol/L (136-145); TSH 2.17 uIU/mL (0.36-3.74); Total Protein 7.2 g/dL (6.4-8.2)
[2020-04-14 09:47] LABS: IgA 170 mg/dL (85-499); IgG 643 mg/dL (610-1,616); IgM 31 mg/dL (35-242); Kappa Free Light Chain 1.05 mg/dL (0.33-1.94); Lambda Free Light Chain 12.93 mg/dL (0.57-2.63)
[2020-04-14 14:16] LABS: Albumin 60.8 % (55.8-66.1); Comment (See Note); Monoclonal Spike 2.6 % (None Seen); Total Protein 6.7 g/dL (6.3-8.2)
== END 2020-04-13 02:58 | disposition home or self-care (01) ==
LOC: LBO 02:57
PROVIDERS: PCP Registered Nurse; Visit Provider Internal Medicine Hematology & Oncology
DX: C90.00 Multiple myeloma not having achieved remission (principal); R53.83 Other fatigue
CPT/HCPCS: 36415; 80053; 82784; 83883; 84165; 84443; 85025

== ENCOUNTER 2020-05-25 04:29 | Outpatient (CLI) | payer MEDICARE, BC, SELFPAY ==
[2020-05-25 12:02] LABS: Abs Immature Grans 0.02 10^3/uL (0.0-0.06); Absolute Basophil Count 0.03 10^3/uL (0.0-0.2); Absolute Eosinophil Count 0.06 10^3/uL (0.0-0.7); Absolute Lymphocyte Count 1.75 10^3/uL (1.2-3.4); Absolute Neutrophil Count 2.31 10^3/uL (1.2-6.7); Basophils % 0.6; Eosinophils % 1.2; HCT 42.2 % (40.0-50.0); HGB 14.6 g/dL (13.5-17.5); Immature Grans % 0.4; Lymphocytes % 35.2; MCH 34.8 pg (27.0-33.0); MCHC 34.6 % (32.0-36.0); MCV 100.7 fL (80-95); MPV 9.3 fL (8.0-11.0); Monocytes % 16.1; Neutrophils % 46.5; Nucleated RBC 0 %; Platelet Count 209 10^3/uL (130-400); RBC 4.19 10^6/uL (4.36-5.78); RDW 12.7 % (11.8-14.1); WBC 4.97 10^3/uL (4.4-10.8)
[2020-05-25 12:23] LABS: ALT 44 U/L (16-63); AST 26 U/L (15-37); Alkaline Phosphatase 42 U/L (46-116); Anion Gap 9.8 mmol/L (3-11); BUN 16 mg/dL (7-18); Bilirubin, Total 0.4 mg/dL (0.2-1.0); CO2 27.2 mmol/L (21.0-32.0); Calcium 9.3 mg/dL (8.5-10.1); Chloride 104 mmol/L (98-107); Glucose 97 mg/dL (74-106); Potassium 4.5 mmol/L (3.5-5.1); Sodium 141 mmol/L (136-145); Total Protein 7.3 g/dL (6.4-8.2)
[2020-05-26 11:40] LABS: IgA 201 mg/dL (85-499); IgG 669 mg/dL (610-1,616); IgM 33 mg/dL (35-242); Kappa Free Light Chain 1.15 mg/dL (0.33-1.94); Lambda Free Light Chain 13.17 mg/dL (0.57-2.63)
[2020-05-26 15:21] LABS: Comment (See Note); Monoclonal Spike 2.8 % (None Seen); Total Protein 6.8 g/dL (6.3-8.2)
== END 2020-05-25 04:30 | disposition home or self-care (01) ==
LOC: LBO 04:30
PROVIDERS: PCP Registered Nurse; Visit Provider Internal Medicine Hematology & Oncology
DX: C90.00 Multiple myeloma not having achieved remission (principal)
CPT/HCPCS: 36415; 80053; 82784; 83883; 84165; 85025

== ENCOUNTER 2020-07-06 10:49 | Outpatient (CLI) | payer MEDICARE, BC, SELFPAY ==
[2020-07-06 11:28] LABS: Abs Immature Grans 0.03 10^3/uL (0.0-0.06); Absolute Basophil Count 0.02 10^3/uL (0.0-0.2); Absolute Eosinophil Count 0.19 10^3/uL (0.0-0.7); Absolute Lymphocyte Count 1.54 10^3/uL (1.2-3.4); Absolute Monocyte Count 0.87 10^3/uL (0.1-0.8); Absolute Neutrophil Count 2.73 10^3/uL (1.2-6.7); Basophils % 0.4; Eosinophils % 3.5; HCT 36.6 % (40.0-50.0); HGB 12.6 g/dL (13.5-17.5); Immature Grans % 0.6; Lymphocytes % 28.6; MCH 34.7 pg (27.0-33.0); MCHC 34.4 % (32.0-36.0); MCV 100.8 fL (80-95); MPV 9.7 fL (8.0-11.0); Monocytes % 16.2; Neutrophils % 50.7; Nucleated RBC 0 %; Platelet Count 193 10^3/uL (130-400); RBC 3.63 10^6/uL (4.36-5.78); RDW 13.2 % (11.8-14.1); RDW-SD 48.3 fL; WBC 5.38 10^3/uL (4.4-10.8)
[2020-07-06 11:45] LABS: ALT 30 U/L (16-63); AST 23 U/L (15-37); Albumin 3.8 g/dL (3.4-5.0); Alkaline Phosphatase 35 U/L (46-116); Anion Gap 7.8 mmol/L (3-11); BUN 12 mg/dL (7-18); Bilirubin, Total 0.7 mg/dL (0.2-1.0); CO2 28.2 mmol/L (21.0-32.0); CREATININE 0.9 mg/dL (0.70-1.30); Calcium 9.1 mg/dL (8.5-10.1); Chloride 106 mmol/L (98-107); Glucose 95 mg/dL (74-106); Potassium 4.1 mmol/L (3.5-5.1); Sodium 142 mmol/L (136-145); Total Protein 6.8 g/dL (6.4-8.2)
[2020-07-07 10:41] LABS: IgA 209 mg/dL (85-499); IgG 626 mg/dL (610-1,616); IgM 27 mg/dL (35-242); Kappa Free Light Chain 1.03 mg/dL (0.33-1.94); Lambda Free Light Chain 15.84 mg/dL (0.57-2.63)
[2020-07-07 13:46] LABS: Albumin 64.5 % (55.8-66.1); Comment (See Note); Monoclonal Spike 3.6 % (None Seen); Total Protein 6.5 g/dL (6.3-8.2)
== END 2020-07-06 10:50 | disposition home or self-care (01) ==
PROVIDERS: PCP Registered Nurse; Visit Provider Internal Medicine Hematology & Oncology
DX: C90.00 Multiple myeloma not having achieved remission (principal)
CPT/HCPCS: 36415; 80053; 82784; 83883; 84165; 85025

== ENCOUNTER 2020-08-17 14:13 | Outpatient (CLI) | payer MEDICARE, BC, SELFPAY ==
[2020-08-17 11:40] LABS: Abs Immature Grans 0.03 10^3/uL (0.0-0.06); Absolute Basophil Count 0.01 10^3/uL (0.0-0.2); Absolute Eosinophil Count 0.12 10^3/uL (0.0-0.7); Absolute Lymphocyte Count 1.08 10^3/uL (1.2-3.4); Absolute Monocyte Count 0.73 10^3/uL (0.1-0.8); Absolute Neutrophil Count 3.09 10^3/uL (1.2-6.7); Basophils % 0.2; Eosinophils % 2.4; HCT 38.8 % (40.0-50.0); HGB 13.4 g/dL (13.5-17.5); Immature Grans % 0.6; Lymphocytes % 21.3; MCH 35.8 pg (27.0-33.0); MCHC 34.5 % (32.0-36.0); MCV 103.7 fL (80-95); MPV 9.4 fL (8.0-11.0); Monocytes % 14.4; Neutrophils % 61.1; Nucleated RBC 0 %; Platelet Count 185 10^3/uL (130-400); RBC 3.74 10^6/uL (4.36-5.78); RDW 13.4 % (11.8-14.1); RDW-SD 50.9 fL; WBC 5.06 10^3/uL (4.4-10.8)
[2020-08-17 12:07] LABS: ALT 33 U/L (16-63); AST 23 U/L (15-37); Albumin 3.9 g/dL (3.4-5.0); Alkaline Phosphatase 37 U/L (46-116); Anion Gap 10.2 mmol/L (3-11); BUN 12 mg/dL (7-18); Bilirubin, Total 0.4 mg/dL (0.2-1.0); CO2 25.8 mmol/L (21.0-32.0); Calcium 9.3 mg/dL (8.5-10.1); Chloride 106 mmol/L (98-107); Glucose 88 mg/dL (74-106); Potassium 4.1 mmol/L (3.5-5.1); Sodium 142 mmol/L (136-145); Total Protein 7.1 g/dL (6.4-8.2)
[2020-08-18 09:09] LABS: IgA 277 mg/dL (85-499); IgG 692 mg/dL (610-1,616); IgM 31 mg/dL (35-242); Kappa Free Light Chain 0.93 mg/dL (0.33-1.94); Lambda Free Light Chain 18.72 mg/dL (0.57-2.63)
[2020-08-18 13:00] LABS: Albumin 63.3 % (55.8-66.1); Comment (See Note); Monoclonal Spike 4.8 % (None Seen); Total Protein 6.8 g/dL (6.3-8.2)
== END 2020-08-17 14:14 | disposition home or self-care (01) ==
LOC: LBO 14:16
PROVIDERS: PCP Registered Nurse; Visit Provider Internal Medicine Hematology & Oncology
DX: C90.00 Multiple myeloma not having achieved remission (principal)
CPT/HCPCS: 36415; 80053; 82784; 83883; 84165; 85025

== ENCOUNTER 2020-09-28 03:54 | Outpatient (CLI) | payer MEDICARE, BC, SELFPAY ==
[2020-09-28 11:36] LABS: Abs Immature Grans 0.03 10^3/uL (0.0-0.06); Absolute Basophil Count 0.02 10^3/uL (0.0-0.2); Absolute Eosinophil Count 0.13 10^3/uL (0.0-0.7); Absolute Lymphocyte Count 1.22 10^3/uL (1.2-3.4); Absolute Monocyte Count 0.77 10^3/uL (0.1-0.8); Absolute Neutrophil Count 3.12 10^3/uL (1.2-6.7); Basophils % 0.4; Eosinophils % 2.5; HCT 38.8 % (40.0-50.0); HGB 13.6 g/dL (13.5-17.5); Immature Grans % 0.6; Lymphocytes % 23.1; MCH 35.7 pg (27.0-33.0); MCHC 35.1 % (32.0-36.0); MCV 101.8 fL (80-95); MPV 9.9 fL (8.0-11.0); Monocytes % 14.6; Neutrophils % 58.8; Nucleated RBC 0 %; Platelet Count 188 10^3/uL (130-400); RBC 3.81 10^6/uL (4.36-5.78); RDW 12.2 % (11.8-14.1); RDW-SD 46.2 fL; WBC 5.29 10^3/uL (4.4-10.8)
[2020-09-28 12:11] LABS: Albumin 3.9 g/dL (3.4-5.0); Alkaline Phosphatase 36 U/L (46-116); BUN 8 mg/dL (7-18); Bilirubin, Total 0.5 mg/dL (0.2-1.0); CREATININE 0.9 mg/dL (0.70-1.30); Calcium 9.3 mg/dL (8.5-10.1); Chloride 106 mmol/L (98-107); Glucose 102 mg/dL (74-106); Potassium 4.6 mmol/L (3.5-5.1); Sodium 140 mmol/L (136-145); Total Protein 6.7 g/dL (6.4-8.2)
[2020-09-28 12:12] LABS: ALT 48 U/L (16-63); AST 30 U/L (15-37)
[2020-09-29 09:32] LABS: IgA 310 mg/dL (85-499); IgG 643 mg/dL (610-1,616); IgM 29 mg/dL (35-242); Kappa Free Light Chain 0.92 mg/dL (0.33-1.94); Lambda Free Light Chain 24.36 mg/dL (0.57-2.63)
[2020-09-29 14:46] LABS: Comment (See Note); Monoclonal Spike 5.1 % (None Seen); Total Protein 6.7 g/dL (6.3-8.2)
== END 2020-09-28 03:55 | disposition home or self-care (01) ==
LOC: LBO 03:54
PROVIDERS: PCP Registered Nurse; Visit Provider Internal Medicine Hematology & Oncology
DX: C90.00 Multiple myeloma not having achieved remission (principal)
CPT/HCPCS: 36415; 80053; 82784; 83883; 84165; 85025

== ENCOUNTER 2020-11-09 02:12 | Outpatient (CLI) | payer MEDICARE, BC, SELFPAY ==
--- OUTSIDE RECORDS SUMMARY | 2020-11-09 02:15 | XMS_ITS ---
:1945 Author Care Team Providers Name Role Phone SEGUN YIN MD General Surgeon Unavailable JACKELIN SWANN NP Referring Provider Unavailable JACKELIN SWANN NP Primary Care Provider Unavailable Allergies Code Code System Name Reaction Severity Status Onset NKDA ? Medications Name Status Start Date Stop Date ? ? acyclovir 400 mg tablet Active ? Not avai lable TAKE ONE TABLET BY MOUTH TWICE A DAY allopurinol 300 mg tablet Active ? Not av ailable TAKE ONE TABLET BY MOUTH EVERY DAY aspirin 325 mg tablet Completed ? 11/28/2019 Take 1 tablet every day by oral route. aspirin 81 mg chewable tablet Active 11/28/2019 No t available Chew 1 tablet every day by oral route. atenolol 50 mg tablet Active ? Not availa ble TAKE ONE TABLET BY MOUTH EVERY DAY cholecalciferol (vitamin D3) Active ? Not available 2000 unit once daily ciprofloxacin 500 mg tablet Completed ? 12/21 TAKE ONE TABLET BY MOUTH TWICE A DAY FOR 10 DAYS Culturelle 10 billion cell capsule Active ? Not available Take 1 capsule every day by oral route. Decadron 4 mg tablet Completed ? 01/03/2020 Take 4 tablets every week by oral route. hydrocodone 5 mg-acetaminophen 325 mg tablet Completed 02/201112/22/2011 2 (two) Tablet: every four to six hours as needed levofloxacin 750 mg tablet Completed ? 05/18 lisinopril 2.5 mg tablet Active ? Not rosalinda ilable TAKE ONE TABLET BY MOUTH EVERY DAY metformin 500 mg tablet Completed ? 11/21/19 19 Take 1 tablet every day by oral route. metformin ER 500 mg tablet,extended release 24 hr Active ? Not available TAKE ONE TABLET BY MOUTH TWICE A DAY metronidazole 500 mg tablet Completed ? 12/21 TAKE ONE TABLET BY MOUTH THREE TIMES A DAY FOR 10 DAYS multivit with min #[id number] Active ? N ot available 1 daily One Touch Test strips Completed 04/18/2013 01/06/2015 1 Strip: daily and as needed OneTouch Delica Plus Lancet 33 Active ? N ot available gauge OneTouch Ultra Blue Test Strip Active ? N ot available USE TO TEST ONCE DAILY penicillin V potassium 500 mg tablet Completed 02/24/2011 03/03/2011 1 (one) Tablet: three times daily Revatio 20 mg tablet Completed ? 05/18/2018 Take 1 tablet by oral route. Revlimid 10 mg capsule Completed ? 0 Revlimid 15 mg capsule Completed ? 0 Revlimid 2.5 mg capsule Completed 04/25/2019 01/03/20 20 Take 1 capsule every day by oral route for 28 days. Revlimid 20 mg capsule Completed ? 0 Revlimid 25 mg capsule Active ? Not avail able simvastatin 40 mg tablet Active ? Not rosalinda ilable TAKE ONE TABLET BY MOUTH EVERY DAY Velcade Completed ? 09/07/2018 once weekly vitamin E (dl, acetate) 450 mg (1,000 unit) capsule Completed ? 01/03/2020 Take 2 capsules every day by oral route. Zometa 4 mg/5 mL intravenous solution Active ? Not available Every 3 months per Onc Problems Name Status Onset Date Source ? Multiple Myeloma Active 05/18/2018 ? Cataract Active 07/02/2018 ? Hyperlipidemia Active ? History Gout Active ? History Obesity Active ? History Benign Essential Hypertension Active ? Hi story Hypertensive Disorder Unknown ? History Obstructed Umbilical Hernia Active ? Hist ory Umbilical Hernia Active ? History Diverticula of Intestine Active ? History Rotator Cuff Shoulder Syndrome and Active ? History Allied Disorders Adult Health Examination Active ? History Screening for Malignant Neoplasm of Active ? History Colon Hyperglycemia Due to Type 2 Diabetes Active ? History Mellitus Procedures Date Name Performed by ? 10/31/2016 Colonoscopy Information not avai lable 06/29/2011 Hernia Repair Information not avai lable Notes: Umbilical 11/16/2017 XR, Chest, [address] [facility] (Internal) [address] [place] [address] (Work [address]) 11/17/2017 XR, Thoracolumbar Junction, 2 or More No rth [facility] (Internal) View [address] [place] [address] (Work Place) 11/20/2017 XR, Thoracic Spine, 3 View [facility] Radiology (Internal) [address] [place], [place] [id number] (Work Place) 11/21/2017 DEXA, Axial Skeleton [facility] [address] [place] [address] (Work Place) Results Lab Results Date Name Specimen Result Interpretation Description Value Range Status Address ? 01/03/2020 Lipid Panel, S ? Chol 114 mg/dL 50-200 Jessica l [facility] mg/dL [facility] [address] ? ? S High Trig 196 mg/dL 10-150 Final [facility] mg/dL [facility] : [address] ? ? S Low Hdl 35 mg/dL 40-60 Final [facility] mg/dL [facility] ([facility] : [address] ? ? S ? Ldl 40 mg/dL 0-130 Final [facility] mg/dL [facility] ([facility]) : [address] 01/03/2020 HbA1C BLD ? Ha1C 6.0 % 4.0-6.0 % Final Nor th (Hemoglobin Count ry a1C), Blood Hospi [facility] Lab (Internal) : [address] 01/03/2020 PSA, Serum or S ? PSA Scrn 1.4 NG/mL 0.0-4.0 Final [facility] Plasma NG/mL [facility] ([facility] : [address] 11/20/2018 HbA1C BLD - Ha1C 5.9 % 4.0-6.0 % Final Nor th (Hemoglobin Count ry a1C), Blood Hospi shea Lab (Internal) : [address] 05/18/2018 Lipid Panel, S - Chol 143 mg/dL 50-200 Jessica l [place] Serum mg/dL [facility] ([facility] : [address] ? ? S High Trig 395 mg/dL 10-150 Final [place] mg/dL [facility] ([facility]) : [address] ? ? S Low Hdl 38 mg/dL 40-60 Final [facility] mg/dL [facility] ([facility] : [address] ? ? S - Ldl 26 mg/dL 0-130 Final [place] mg/dL [facility] (Internal) : [address] 05/18/2018 HbA1C BLD - Ha1C 6.0 % 4.0-6.0 % Final [place] th (Hemoglobin Count ry a1C), Blood Hospi shea Lab (Internal) : [address] 05/18/2018 PSA, Serum or S - PSA Scrn 1.3 NG/mL 0.0-4.0 Final [place] Plasma NG/mL [facility] (Internal) : [address] 02/15/2018 Immunoglobuli S Low Igg 477 mg/dL 610-1616 F inal [place] ns mg/dL [facility] Iga+igg+igm, Hosp ital Lab Quantitative, (In ternal): Serum [address] ? ? S High Iga 1812 85-499 Final [place] mg/dL mg/dL [facility] (Internal) : [address] ? ? S Low Igm 30 mg/dL 35-242 Final [place] mg/dL [facility] (Internal) : [address] 02/15/2018 Protein S - Total 7.7 g/dL 6.3-8.2 Final No rth Electrophores Protein g/dL Co untry is Panel, Hospita l Lab Serum or (Interna l): Plasma [address] ? ? S Low Albumin 49.0 % 55.8-66.1 Final [facility] L ab (Internal) : [address] [place] ? ? S - Alpha 1 3.5 % 2.9-4.9 % Final [facility] L [facility] (Internal) : [address] [place] ? ? S - Alpha 2 10.7 % 7.1-11.8 Final [facility] (Internal) : [address] ? ? S - Beta 8.9 % 8.4-13.1 Final [facility] (Internal) : [address] ? ? S High Gamma 27.9 % 11.1-18.8 Final [facility] (Internal) : [address] ? ? S - Monoclonal 20.2 % ? Final [facility] (Internal) : [address] ? ? S - Comments see below ? Final Nort [facility] (Internal) : [address] 02/15/2018 Neutrophil BLD - Anc-manual 2.50 ? Jessica l [place] Count, 10*3/uL [facility] Lab (Anc), Blood (Int ernal): [address] 02/15/2018 Differential, BLD - Polys 54 % 40-75 % Final [facility], Blood [facility] L ab (Internal) : [address] ? ? BLD - Bands 0 % 0-5 % Final [facility] (Internal) : [address] ? ? BLD - Lymphs 33 % 20-50 % Final [facility] (Internal) : [address] ? ? BLD - [place] 9 % 2-10 % Final [facility] (Internal) : [address] ? ? BLD - Eos 4 % 0-6 % Final [facility] (Internal) : [address] ? ? BLD - Baso 0 % 0-1 % Final [facility] (Internal) : [address] ? ? BLD - Atyp Lymph 0 % ? Final [facility] ab (Internal) : [address] ? ? BLD - Plts, Est. adequate adequate Final [facility] (Internal) : [address] ? ? BLD ABNORMAL RBC abnormal normal Final [facility] (Internal) : [address] ? ? BLD - Macro small ? Final [facility] (Internal) : [address] 02/15/2018 CMP, Serum or S High g/r 146 mg/dL 74-106 Fin al [place] Plasma mg/dL [facility] (Internal) : [address] ? ? S - Bun 17 mg/dL 9-20 Final [place] mg/dL [facility] (Internal) : [address] ? ? S - Crea 0.80 0.66-1.25 Final [facility] mg/dL mg/dL [facility] ([facility] : [address] ? ? S - Ca 10.1 8.4-10.2 Final [place] mg/dL mg/dL [facility] ([facility] : [address] ? ? S - Na 141 137-145 Final [place] mmol/L mmol/L [facility] ([facility] : [address] ? ? S - K 4.2 3.5-5.1 Final [place] mmol/L mmol/L [facility] ([facility]) : [address] ? ? S - Cl 103 98-107 Final [place] mmol/L mmol/L [facility] (Internal) : [address] ? ? S - Tco2 25.0 22.0-30.0 Final [place] mmol/L mmol/L [facility] (Internal) : [address] ? ? S - Tp 8.1 g/dL 6.3-8.2 Final [facility] g/dL [facility] ([facility] : [address] ? ? S - Alb 4.2 g/dL 3.5-5.0 Final [facility] g/dL [facility] ([facility]) : [address] ? ? S - Tbil 0.5 mg/dL 0.2-1.3 Final [facility] mg/dL [facility] ([facility] : [address] ? ? S - Alp 48 U/L 38-126 Final [facility] U/L [facility] ([facility] : [address] ? ? S - Alt (Sgpt) 44 U/L 21-72 U/L Final No rth [facility] (Internal) : [address] ? ? S - Ast (Sgot) 55 U/L 17-59 U/L Final No rth [facility] (Internal) : [address] 02/15/2018 CBC W/ Auto BLD Low Wbc 4.6 5.0-10.0 Final [place] Diff 10*3/uL 10*3/uL [facility] ([facility] : [address] ? ? BLD Low Rbc 3.62 4.60-6.00 Final [place] 10*6/uL 10*6/uL [facility] L ab (Internal) : [address] ? ? BLD Low Hgb 12.5 g/dL 14.0-18.0 Final Nort h g/dL [facility] L ab (Internal) : [address] ? ? BLD Low Hct 37.0 % 41.0-51.0 Final [facility] (Internal) : [address] ? ? BLD High Mcv 102.2 fL 80.0-96.0 Final [facility] L [facility] (Internal) : [address] ? ? BLD High Mch 34.5 pg 26.0-32.0 Final [facility] (Internal) : [address] ? ? BLD - Mchc 33.8 g/dL 31.0-35.0 Final Nort h g/dL [facility] (Internal) : [address] ? ? BLD - Rdw 14.3 % 11.5-14.5 Final [facility] (Internal) : [address] ? ? BLD - Plt 241 130-450 Final [place] 10*3/uL 10*3/uL [facility] (Internal) : [address] 11/22/2017 Testosterone, S - Testostero 267 NG/dL 229-9 02 Final [place] Total, Serum ne NG/dL Coun [facility] L ab (Internal) : [address] 11/22/2017 Immunofixatio S - Total 8.2 g/dL 6.3-8.2 Fin al [place] n + Protein Protein g/dL Coun try [facility] Lab is + Free (Restaurant Floor Manager al): [employer], [address] ? ? S Low Albumin 49.1 % 55.8-66.1 Final [facility] L ab (Internal) : [address] ? ? S - Alpha 1 3.5 % 2.9-4.9 % Final [facility] L ab (Internal) : [address] ? ? S - Alpha 2 11.1 % 7.1-11.8 Final [facility] L [facility] (Internal) : [address] ? ? S - Beta 9.4 % 8.4-13.1 Final [facility] (Internal) : [address] ? ? S High Gamma 26.9 % 11.1-18.8 Final [facility] (Internal) : [address] ? ? S - Monoclonal 17.5 % ? Final [facility] (Internal) : [address] ? ? S - Comments see ? Final [facility] (Internal) : [address] ? ? S - Immunotypi see below ? Final No rth ng, Serum [facility] L ab (Internal) : [address] 11/22/2017 Immunoelectro UR - Total 20 mg/dL ? Jessica randall [place] phoresis, Protein, Count ry Urine [facility] (Internal) : [address] ? ? UR - Albumin 7.6 % ? Final [facility] (Internal) : [address] ? ? UR - Globulins 92.4 ? Final [facility] ab (Internal) : [address] ? ? UR - Comments see ? Final [facility] ab (Internal) : [address] ? ? UR - Immunotypi see below ? Final No rth ng, Urine [facility] L ab (Internal) : [address] 11/16/2017 HbA1C BLD High Ha1C 6.2 % 4.0-6.0 % Final Nor th (Hemoglobin Count ry a1C), Blood Hospi [facility] Lab (Internal) : [address] 05/15/2017 Venipuncture BLD ? Venpn* ? ? Final [facility] (Internal) : [address] 05/15/2017 HbA1C BLD High Ha1C 6.2 % 4.0-6.0 % Final Nor th (Hemoglobin Count ry a1C), Blood Hospi [facility] Lab (Internal) : [address] 05/15/2017 BMP, Serum or S ? g/r 106 mg/dL 74-106 Fin al [place] Plasma mg/dL [facility] : [address] ? ? S ? Bun 11 mg/dL 9-20 Final [facility] mg/dL [facility] ([facility] : [address] ? ? S ? Crea 0.90 0.66-1.25 Final [facility] mg/dL mg/dL [facility] ([facility]) : [address] ? ? S ? Ca 10.0 8.4-10.2 Final [facility] mg/dL mg/dL [facility] (Internal) : [address] ? ? S ? Na 138 137-145 Final [facility] mmol/L mmol/L [facility] (Internal) : [address] ? ? S ? K 4.4 3.5-5.1 Final [place] mmol/L mmol/L [facility] (Internal) : [address] ? ? S ? Cl 102 98-107 Final [place] mmol/L mmol/L [facility] (Internal) : [address] ? ? S ? Tco2 25.0 22.0-30.0 Final [place] mmol/L mmol/L [facility] (Internal) : [address] 05/15/2017 Lipid Panel, S ? Chol 87 mg/dL 50-200 Final [place] Serum mg/dL [facility] (Internal) : [address] ? ? S High Trig 206 mg/dL 10-150 Final [facility] mg/dL [facility] ([facility]) : [address] ? ? S Low Hdl 31 mg/dL 40-60 Final [facility] mg/dL [facility] ([facility]) : [address] ? ? S ? Ldl 15 mg/dL 0-130 Final [facility] mg/dL [facility] ([facility] : [address] 11/14/2016 Venipuncture BLD ? Venpn* ? ? Final [facility] : [address] 11/14/2016 HbA1C BLD High Ha1C 6.1 % 4.0-6.0 % Final Nor th (Hemoglobin Count ry a1C), Blood Hospi shea Lab (Internal) : [address] 10/31/2016 Pathology TISS ? Report results ? Final N orth Study below [facility] ([facility] : [address] 05/12/2016 Venipuncture BLD ? Venpn* ? ? Final [facility] (Internal) : [address] 05/12/2016 PSA, Serum or S ? PSA Scrn 0.9 NG/mL 0.0-4.0 Final [place] Plasma NG/mL [facility] ([facility] : [address] 05/12/2016 Lipid Panel, S ? Chol 98 mg/dL 50-200 Final [place] Serum mg/dL [facility] L [facility] (Internal) : [address] ? ? S High Trig 288 mg/dL 10-150 Final [place] mg/dL [facility] (Internal) : [address] ? ? S Low Hdl 30 mg/dL 40-60 Final [facility] mg/dL [facility] ([facility] : [address] ? ? S ? Ldl 10 mg/dL 0-130 Final [facility] mg/dL [facility] ([facility]) : [address] 05/12/2016 BMP, Serum or S High g/r 107 mg/dL 74-106 Fin al [place] Plasma mg/dL [facility] (Internal) : [address] ? ? S ? Bun 17 mg/dL 9-20 Final [place] mg/dL [facility] (Internal) : [address] ? ? S ? Crea 0.90 0.66-1.25 Final [facility] mg/dL mg/dL [facility] ([facility]) : [address] ? ? S ? Ca 9.4 mg/dL 8.4-10.2 Final [facility] mg/dL [facility] ([facility] : [address] ? ? S ? Na 141 137-145 Final [place] mmol/L mmol/L [facility] (Internal) : [address] ? ? S ? K 4.4 3.5-5.1 Final [facility] mmol/L mmol/L [facility] ([facility]) : [address] ? ? S ? Cl 102 98-107 Final [facility] mmol/L mmol/L [facility] ([facility]) : [address] ? ? S ? Tco2 26.0 22.0-30.0 Final [facility] mmol/L mmol/L [facility] ([facility]) : [address] 05/12/2016 HbA1C BLD High Ha1C 6.1 % 4.0-6.0 % Final Nor th (Hemoglobin Count ry a1C), Blood Hospi [facility] Lab (Internal) : [address] Past Encounters 01/03/2020 Adult Health Examination; Benign Essenti al Hypertension; Hyperglycemia Due to Type 2 Diabetes Mellitus; Hyperlipidemia; Multiple Myeloma; Screening for Malignant Neoplasm of Prostate Jackelin Swann, SPECIAL PROCEDURES TECH: [address] [place] [address] [place] [address], Ph. Social History Tobacco Smoking Status Former Smoker Notes: quit in 1984, started as a teenager, approx. 1p pd Vaccine List Vaccine Type COVID-19, mRNA, LNP-S, PF, 100 mcg/0.5 m L dose 05/07/2020 06/01/2020 influenza, high dose seasonal 11/12/2015?0.5 mL 11/14/2016?0.5 mL influenza, injectable, quadrivalent 11/21/2019 influenza, seasonal, injectable 12/19/2014 influenza, seasonal, injectable, preserv ative free 03/01/2011?0.5 mL 12/22/2011?0.5 mL 01/10/2014?0.5 mL influenza, trivalent, adjuvanted 11/16/2017?0.5 mL 11/20/2018?0.5 mL pneumococcal conjugate PCV 13 05/12/2016?0.5 mL pneumococcal polysaccharide PPV23 12/22/2011?0.5 mL Tdap 03/01/2011?0.5 mL Plan of Care Reminders Provider Appointments None ? ? recorded. Lab None ? ? recorded. Referral None ? ? recorded. Procedures None ? ? recorded. Surgeries None ? ? recorded. Imaging None ? ? recorded. Vitals 01/03/2020 11:00AM AWV 40 Weight Blood Pressure 87.09 kg 110/60 mm[Hg] 11/20/2018 10:40AM Follow Up 20 Height Weight BMI Blood Pressure 182.88 cm 100.74 kg 30.1 kg/m2 112/68 mm[Hg] 09/07/2018 10:20AM Same Day 20 Height Weight BMI Blood Pressure 182.88 cm 95.03 kg 28.4 kg/m2 100/58 mm[Hg] 05/18/2018 11:00AM AWV 40 Height Weight BMI Blood Pressure 182.88 cm 95.89 kg 28.7 kg/m2 92/54 mm[Hg] 11/16/2017 10:40AM Follow Up 20 Height Weight BMI Blood Pressure 182.88 cm 102.56 kg 30.7 kg/m2 130/80 mm[Hg] 05/15/2017 Height Weight Blood Pressure 182.88 cm 105.01 kg 126/66 mm[Hg] 11/14/2016 Weight Blood Pressure 102.65 kg 114/58 mm[Hg] 05/12/2016 Height Weight Blood Pressure 182.88 cm 105.69 kg 126/74 mm[Hg] 11/12/2015 Height Weight Blood Pressure 184.15 cm 102.01 kg 120/78 mm[Hg] 05/07/2015 Height Weight Blood Pressure 184.15 cm 103.78 kg 120/60 mm[Hg] 11/13/2014 Weight Blood Pressure 103.28 kg 106/56 mm[Hg] 11/05/2014 Weight Blood Pressure 103.28 kg 118/66 mm[Hg] 04/25/2014 Weight Blood Pressure 102.51 kg 132/76 mm[Hg] 10/18/2013 Weight Blood Pressure 96.98 kg 126/72 mm[Hg] 04/16/2013 Height Weight Blood Pressure 185.42 cm 97.43 kg 124/78 mm[Hg] 10/11/2012 Height Weight Blood Pressure 185.42 cm 93.53 kg (1) 130/80 mm[Hg] (2) 140/84 mm[Hg] 03/23/2012 Height Weight Blood Pressure 185.42 cm 92.71 kg 128/80 mm[Hg] 12/29/2011 Height Weight Blood Pressure 185.42 cm 90.31 kg 138/74 mm[Hg] 12/22/2011 Height Weight Blood Pressure 185.42 cm 90.31 kg 118/78 mm[Hg] 08/11/2011 Height Weight 185.42 cm 94.39 kg 06/21/2011 Height Weight Blood Pressure 185.42 cm 94.39 kg 114/64 mm[Hg] 04/15/2011 Height Weight Blood Pressure 184.79 cm 100.61 kg 118/70 mm[Hg] 03/15/2011 Weight Blood Pressure 105.14 kg 112/76 mm[Hg] 03/01/2011 Height Weight Blood Pressure 184.79 cm 105.73 kg 134/78 mm[Hg]
[2020-11-09 11:26] LABS: Abs Immature Grans 0.03 10^3/uL (0.0-0.06); Absolute Basophil Count 0.02 10^3/uL (0.0-0.2); Absolute Eosinophil Count 0.11 10^3/uL (0.0-0.7); Absolute Lymphocyte Count 1.16 10^3/uL (1.2-3.4); Absolute Neutrophil Count 2.75 10^3/uL (1.2-6.7); Basophils % 0.4; Eosinophils % 2.3; HCT 36.6 % (40.0-50.0); HGB 12.9 g/dL (13.5-17.5); Immature Grans % 0.6; Lymphocytes % 23.8; MCH 35.6 pg (27.0-33.0); MCHC 35.2 % (32.0-36.0); MCV 101.1 fL (80-95); MPV 9.8 fL (8.0-11.0); Monocytes % 16.4; Neutrophils % 56.5; Nucleated RBC 0 %; Platelet Count 158 10^3/uL (130-400); RBC 3.62 10^6/uL (4.36-5.78); RDW 12.6 % (11.8-14.1); RDW-SD 47.1 fL; WBC 4.87 10^3/uL (4.4-10.8)
[2020-11-09 11:43] LABS: ALT 43 U/L (16-63); AST 25 U/L (15-37); Albumin 3.7 g/dL (3.4-5.0); Alkaline Phosphatase 37 U/L (46-116); Anion Gap 5.5 mmol/L (3-11); BUN 10 mg/dL (7-18); Bilirubin, Total 0.6 mg/dL (0.2-1.0); CO2 29.5 mmol/L (21.0-32.0); CREATININE 0.9 mg/dL (0.70-1.30); Calcium 8.6 mg/dL (8.5-10.1); Chloride 105 mmol/L (98-107); Glucose 102 mg/dL (74-106); Potassium 4.3 mmol/L (3.5-5.1); Sodium 140 mmol/L (136-145); TSH 2.73 uIU/mL (0.36-3.74); Total Protein 6.9 g/dL (6.4-8.2)
[2020-11-10 12:16] LABS: IgA 326 mg/dL (85-499); IgG 612 mg/dL (610-1,616); IgM 29 mg/dL (35-242); Kappa Free Light Chain 0.85 mg/dL (0.33-1.94); Lambda Free Light Chain 25.61 mg/dL (0.57-2.63)
[2020-11-10 14:03] LABS: Albumin 62.8 % (55.8-66.1); Comment (See Note); Monoclonal Spike 5.1 % (None Seen); Total Protein 6.6 g/dL (6.3-8.2)
== END 2020-11-09 02:13 | disposition home or self-care (01) ==
LOC: LBO 02:13
PROVIDERS: PCP Registered Nurse; Visit Provider Internal Medicine Hematology & Oncology
DX: C90.00 Multiple myeloma not having achieved remission (principal); Z79.899 Other long term (current) drug therapy
CPT/HCPCS: 36415; 80053; 82784; 83883; 84165; 84443; 85025

== ENCOUNTER 2021-02-01 04:03 | Outpatient (CLI) | payer MEDICARE, BC, SELFPAY ==
[2021-02-01 11:22] LABS: Abs Immature Grans 0.03 10^3/uL (0.0-0.06); Absolute Basophil Count 0.02 10^3/uL (0.0-0.2); Absolute Eosinophil Count 0.14 10^3/uL (0.0-0.7); Absolute Lymphocyte Count 1.53 10^3/uL (1.2-3.4); Absolute Monocyte Count 0.63 10^3/uL (0.1-0.8); Absolute Neutrophil Count 1.98 10^3/uL (1.2-6.7); Basophils % 0.5; Eosinophils % 3.2; HCT 37.2 % (40.0-50.0); HGB 12.7 g/dL (13.5-17.5); Immature Grans % 0.7; Lymphocytes % 35.3; MCHC 34.1 % (32.0-36.0); MCV 105.4 fL (80-95); MPV 9.1 fL (8.0-11.0); Monocytes % 14.5; Neutrophils % 45.8; Nucleated RBC 0 %; Platelet Count 168 10^3/uL (130-400); RBC 3.53 10^6/uL (4.36-5.78); RDW-SD 50.2 fL; WBC 4.33 10^3/uL (4.4-10.8)
[2021-02-01 12:53] LABS: ALT 51 U/L (16-63); AST 35 U/L (15-37); Alkaline Phosphatase 34 U/L (46-116); Anion Gap 7.5 mmol/L (3-11); BUN 13 mg/dL (7-18); Bilirubin, Total 0.5 mg/dL (0.2-1.0); CO2 26.5 mmol/L (21.0-32.0); CREATININE 0.9 mg/dL (0.70-1.30); Calcium 8.9 mg/dL (8.5-10.1); Chloride 105 mmol/L (98-107); Glucose 86 mg/dL (74-106); Potassium 4.2 mmol/L (3.5-5.1); Sodium 139 mmol/L (136-145)
[2021-02-02 09:52] LABS: IgA 424 mg/dL (85-499); IgG 711 mg/dL (610-1,616); IgM 33 mg/dL (35-242); Kappa Free Light Chain 1.01 mg/dL (0.33-1.94); Lambda Free Light Chain 30.98 mg/dL (0.57-2.63)
[2021-02-02 13:32] LABS: Albumin 60.6 % (55.8-66.1); Comment (See Note); Monoclonal Spike 5.9 % (None Seen); Total Protein 7.3 g/dL (6.3-8.2)
[2021-02-02 17:08] LABS: PSA, Ultrasensitive 0.66 ng/mL (<= 6.5)
== END 2021-02-01 04:04 | disposition home or self-care (01) ==
LOC: LBO 04:03
PROVIDERS: PCP Registered Nurse; Visit Provider Internal Medicine Hematology & Oncology
DX: C90.00 Multiple myeloma not having achieved remission (principal); R93.5 Abnormal findings on diagnostic imaging of other abdominal regions, including retroperitoneum; R39.89 Other symptoms and signs involving the genitourinary system
CPT/HCPCS: 36415; 80053; 82784; 84153; 83883; 84165; 85025

== ENCOUNTER 2021-03-15 03:32 | Outpatient (CLI) | payer MEDICARE, BC, SELFPAY ==
[2021-03-15 11:40] LABS: Abs Immature Grans 0.02 10^3/uL (0.0-0.06); Absolute Basophil Count 0.01 10^3/uL (0.0-0.2); Absolute Lymphocyte Count 1.17 10^3/uL (1.2-3.4); Absolute Monocyte Count 0.61 10^3/uL (0.1-0.8); Absolute Neutrophil Count 2.18 10^3/uL (1.2-6.7); Basophils % 0.2; Eosinophils % 2.4; HCT 39.1 % (40.0-50.0); HGB 13.5 g/dL (13.5-17.5); Immature Grans % 0.5; Lymphocytes % 28.6; MCH 35.6 pg (27.0-33.0); MCHC 34.5 % (32.0-36.0); MCV 103.2 fL (80-95); Monocytes % 14.9; Neutrophils % 53.4; Nucleated RBC 0 %; Platelet Count 183 10^3/uL (130-400); RBC 3.79 10^6/uL (4.36-5.78); RDW 12.4 % (11.8-14.1); RDW-SD 46.6 fL; WBC 4.09 10^3/uL (4.4-10.8)
[2021-03-15 11:54] LABS: ALT 52 U/L (16-63); AST 35 U/L (15-37); Alkaline Phosphatase 41 U/L (46-116); BUN 13 mg/dL (7-18); Bilirubin, Total 0.6 mg/dL (0.2-1.0); CREATININE 0.9 mg/dL (0.70-1.30); Calcium 9.1 mg/dL (8.5-10.1); Chloride 103 mmol/L (98-107); Glucose 102 mg/dL (74-106); Potassium 4.2 mmol/L (3.5-5.1); Sodium 138 mmol/L (136-145); Total Protein 7.4 g/dL (6.4-8.2)
[2021-03-16 09:58] LABS: IgA 432 mg/dL (85-499); IgG 686 mg/dL (610-1,616); IgM 28 mg/dL (35-242); Kappa Free Light Chain 1.06 mg/dL (0.33-1.94); Lambda Free Light Chain 35.88 mg/dL (0.57-2.63)
[2021-03-16 16:22] LABS: PSA, Ultrasensitive 0.66 ng/mL (<= 6.5)
[2021-03-17 14:41] LABS: Albumin 61.2 % (55.8-66.1); Comment (See Note); Monoclonal Spike 6.6 % (None Seen); Total Protein 7.1 g/dL (6.3-8.2)
== END 2021-03-15 03:33 | disposition home or self-care (01) ==
PROVIDERS: PCP Registered Nurse; Visit Provider Internal Medicine Hematology & Oncology
DX: C90.00 Multiple myeloma not having achieved remission (principal); R93.5 Abnormal findings on diagnostic imaging of other abdominal regions, including retroperitoneum; R39.89 Other symptoms and signs involving the genitourinary system
CPT/HCPCS: 36415; 80053; 82784; 84153; 83883; 84165; 85025

== ENCOUNTER 2021-04-26 04:18 | Outpatient (CLI) | payer MEDICARE, BC, SELFPAY ==
[2021-04-26 11:28] LABS: Abs Immature Grans 0.04 10^3/uL (0.0-0.06); Absolute Basophil Count 0.02 10^3/uL (0.0-0.2); Absolute Eosinophil Count 0.09 10^3/uL (0.0-0.7); Absolute Lymphocyte Count 1.23 10^3/uL (1.2-3.4); Absolute Monocyte Count 0.73 10^3/uL (0.1-0.8); Basophils % 0.5; Eosinophils % 2.1; HCT 36.1 % (40.0-50.0); HGB 12.7 g/dL (13.5-17.5); Immature Grans % 0.9; Lymphocytes % 28.1; MCHC 35.2 % (32.0-36.0); MCV 102.3 fL (80-95); MPV 9.9 fL (8.0-11.0); Monocytes % 16.7; Neutrophils % 51.7; Nucleated RBC 0 %; Platelet Count 171 10^3/uL (130-400); RBC 3.53 10^6/uL (4.36-5.78); RDW-SD 48.8 fL; WBC 4.38 10^3/uL (4.4-10.8)
[2021-04-26 11:29] LABS: Absolute Neutrophil Count 2.26 10^3/uL (1.2-6.7)
[2021-04-26 11:49] LABS: ALT 42 U/L (16-63); AST 35 U/L (15-37); Albumin 3.9 g/dL (3.4-5.0); Alkaline Phosphatase 35 U/L (46-116); Anion Gap 11.4 mmol/L (3-11); BUN 9 mg/dL (7-18); Bilirubin, Total 0.6 mg/dL (0.2-1.0); CO2 24.6 mmol/L (21.0-32.0); CREATININE 0.9 mg/dL (0.70-1.30); Chloride 109 mmol/L (98-107); Glucose 97 mg/dL (74-106); Potassium 4.4 mmol/L (3.5-5.1); Sodium 145 mmol/L (136-145); Total Protein 7.1 g/dL (6.4-8.2)
[2021-04-27 09:30] LABS: IgA 359 mg/dL (85-499); IgG 663 mg/dL (610-1,616); IgM 22 mg/dL (35-242); Kappa Free Light Chain 0.93 mg/dL (0.33-1.94); Lambda Free Light Chain 30.76 mg/dL (0.57-2.63)
[2021-04-27 14:19] LABS: Albumin 61.1 % (55.8-66.1); Comment (See Note); Monoclonal Spike 6.5 % (None Seen); Total Protein 6.6 g/dL (6.3-8.2)
[2021-04-27 16:58] LABS: PSA, Ultrasensitive 0.85 ng/mL (<= 6.5)
== END 2021-04-26 04:19 | disposition home or self-care (01) ==
LOC: LBO 04:18
PROVIDERS: Internal Medicine Hematology & Oncology; PCP Registered Nurse; Visit Provider Internal Medicine
DX: C90.00 Multiple myeloma not having achieved remission (principal); R93.5 Abnormal findings on diagnostic imaging of other abdominal regions, including retroperitoneum; R39.89 Other symptoms and signs involving the genitourinary system
CPT/HCPCS: 36415; 80053; 82784; 84153; 83883; 84165; 85025

== ENCOUNTER 2021-05-12 01:29 | Outpatient (CLI) | payer MEDICARE, BC, SELFPAY | END 2021-05-12 01:30 | disposition home or self-care (01) | LOC: INF 01:29 | PROVIDERS: PCP Registered Nurse; Visit Provider Nurse Practitioner Family | DX: C90.00 Multiple myeloma not having achieved remission (principal); D84.9 Immunodeficiency, unspecified | CPT/HCPCS: 96372; Q0221 ==

== ENCOUNTER 2021-06-07 02:40 | Outpatient (CLI) | payer MEDICARE, BC, SELFPAY ==
[2021-06-07 12:04] LABS: Abs Immature Grans 0.04 10^3/uL (0.0-0.06); Absolute Basophil Count 0.02 10^3/uL (0.0-0.2); Absolute Lymphocyte Count 1.47 10^3/uL (1.2-3.4); Absolute Monocyte Count 0.78 10^3/uL (0.1-0.8); Absolute Neutrophil Count 1.46 10^3/uL (1.2-6.7); Basophils % 0.5; Eosinophils % 2.6; HCT 37.5 % (40.0-50.0); HGB 12.7 g/dL (13.5-17.5); MCH 35.5 pg (27.0-33.0); MCHC 33.9 % (32.0-36.0); MCV 104.7 fL (80-95); MPV 10.1 fL (8.0-11.0); Monocytes % 20.2; Neutrophils % 37.7; Platelet Count 180 10^3/uL (130-400); RBC 3.58 10^6/uL (4.36-5.78); RDW 13.2 % (11.8-14.1); RDW-SD 50.6 fL; WBC 3.87 10^3/uL (4.4-10.8)
[2021-06-07 12:41] LABS: ALT 52 U/L (16-63); AST 38 U/L (15-37); Albumin 3.9 g/dL (3.4-5.0); Alkaline Phosphatase 42 U/L (46-116); BUN 14 mg/dL (7-18); Bilirubin, Total 0.4 mg/dL (0.2-1.0); Calcium 8.7 mg/dL (8.5-10.1); Chloride 105 mmol/L (98-107); Glucose 92 mg/dL (74-106); Potassium 4.1 mmol/L (3.5-5.1); Sodium 138 mmol/L (136-145)
[2021-06-08 10:32] LABS: IgA 457 mg/dL (85-499); IgG 612 mg/dL (610-1,616); IgM 26 mg/dL (35-242); Kappa Free Light Chain 0.99 mg/dL (0.33-1.94); Lambda Free Light Chain 42.38 mg/dL (0.57-2.63)
[2021-06-08 14:13] LABS: Albumin 58.5 % (55.8-66.1); Albumin g/dL 3.9 g/dL (3.6-5.2); Comment (See Note); Monoclonal Spike 7.1 % (None Seen); Monoclonal Spike g/dL 0.5 g/dL (None Seen); Total Protein 6.7 g/dL (6.3-8.2)
[2021-06-09 17:51] LABS: PSA, Ultrasensitive 1.2 ng/mL (<= 6.5)
== END 2021-06-07 02:41 | disposition home or self-care (01) ==
LOC: LBO 02:40
PROVIDERS: PCP Registered Nurse; Visit Provider Internal Medicine Hematology & Oncology
DX: C90.00 Multiple myeloma not having achieved remission (principal); R39.89 Other symptoms and signs involving the genitourinary system; R93.5 Abnormal findings on diagnostic imaging of other abdominal regions, including retroperitoneum
CPT/HCPCS: 36415; 80053; 82784; 84153; 83883; 84165; 85025

== ENCOUNTER 2021-07-16 01:54 | Outpatient (CLI) | payer MEDICARE, BC, SELFPAY ==
[2021-07-16 11:28] LABS: Abs Immature Grans 0.03 10^3/uL (0.0-0.06); Absolute Basophil Count 0.01 10^3/uL (0.0-0.2); Absolute Eosinophil Count 0.08 10^3/uL (0.0-0.7); Absolute Monocyte Count 0.61 10^3/uL (0.1-0.8); Absolute Neutrophil Count 1.81 10^3/uL (1.2-6.7); Basophils % 0.3; HCT 36.8 % (40.0-50.0); HGB 12.9 g/dL (13.5-17.5); Immature Grans % 0.8; Lymphocytes % 35.5; MCH 36.5 pg (27.0-33.0); MCHC 35.1 % (32.0-36.0); MCV 104 fL (80-95); MPV 10.1 fL (8.0-11.0); Monocytes % 15.5; Neutrophils % 45.9; Platelet Count 173 10^3/uL (130-400); RBC 3.53 10^6/uL (4.36-5.78); RDW 13.8 % (11.8-14.1); RDW-SD 52.4 fL; WBC 3.94 10^3/uL (4.4-10.8)
[2021-07-16 11:41] LABS: ALT 51 U/L (16-63); AST 42 U/L (15-37); Albumin 3.7 g/dL (3.4-5.0); Alkaline Phosphatase 42 U/L (46-116); Anion Gap 8.3 mmol/L (3-11); BUN 9 mg/dL (7-18); Bilirubin, Total 0.6 mg/dL (0.2-1.0); CO2 27.7 mmol/L (21.0-32.0); Calcium 8.9 mg/dL (8.5-10.1); Chloride 106 mmol/L (98-107); Glucose 104 mg/dL (74-106); Sodium 142 mmol/L (136-145)
[2021-07-19 09:00] LABS: IgA 462 mg/dL (85-499); IgG 597 mg/dL (610-1,616); IgM 20 mg/dL (35-242); Lambda Free Light Chain 37.88 mg/dL (0.57-2.63)
[2021-07-20 12:40] LABS: Albumin 58.4 % (55.8-66.1); Albumin g/dL 3.9 g/dL (3.6-5.2); Comment (See Note); Monoclonal Spike g/dL 0.5 g/dL (None Seen); Total Protein 6.6 g/dL (6.3-8.2)
[2021-07-20 14:04] LABS: PSA, Ultrasensitive 1.9 ng/mL (<= 6.5)
== END 2021-07-16 01:55 | disposition home or self-care (01) ==
LOC: LBO 01:54
PROVIDERS: PCP Registered Nurse; Visit Provider Internal Medicine Hematology & Oncology
DX: C90.00 Multiple myeloma not having achieved remission (principal); R39.89 Other symptoms and signs involving the genitourinary system; R93.5 Abnormal findings on diagnostic imaging of other abdominal regions, including retroperitoneum
CPT/HCPCS: 36415; 80053; 82784; 84153; 83883; 84165; 85025